=== PATIENT | female | born 1960 | race Caucasian/White ===

== ENCOUNTER 2017-11-23 18:03 | Emergency (ER) | payer OTHER, SELFPAY ==
[2017-11-23 18:05] VITALS: BP 150/95; PULSE 99; RESP 18; TEMP 37; O2SAT 98; BMI 40.8
--- NOTE | 2017-11-23 18:15 | ED.VISSUMM ---
- ER Visit Summary Date of Service: 11/23/17 Chief Complaint: Right knee pain History of Present Illness: The patient is a 57 F presents to the emergency department with right knee pain. Patient states her symptoms began as a dull ache in the knee about a month ago. She states that she has had meniscus surgery in the left knee and it felt different. Over the past 2 weeks, the pain is worsened. Most of the pain is in the back of her knee. She states that she has a difficult time getting comfortable. It is made worse when she bears weight. She denies any trauma. She denies any fevers or chills. She has no history of pulmonary embolus or DVT. She does have a Billy cyst and states that this feels similar. Physical Examination: Vital signs reviewed General: Well-nourished, well-developed Head: Normocephalic, atraumatic Eyes: Pupils equal and reactive, extraocular muscles intact Neck, supple, no lymphadenopathy Heart: Regular rate and rhythm Respiratory: No distress, clear bilaterally Abdomen: Soft, nontender, nondistended, no peritoneal signs Back: Nontender Extremities: Mild tenderness in the posterior right knee, no palpable mass, normal pulses, calves soft Skin: Normal color no rash Neuro: Alert and oriented, no focal or lateralizing deficits Test Results: [] Emergency Department Course and Treatment: The patient did have tenderness to palpation in the posterior thigh into the posterior knee. There is no palpable mass. There is no cords. Her pulses were normal. I did obtain plain films of the knee which are unremarkable. Patient underwent ultrasound which showed nonocclusive DVT within the thigh. I do feel that the patient is amenable to outpatient therapy. She will be started on Eliquis. She is given her first dose here. She was counseled on concerning symptoms and reasons to return. The patient will be discharged home. Treatment Plan: [] Disposition: Discharge Impression: 1. Right lower extremity DVT This note was generated with [employer] dictation software. It may contain incorrect words, spelling, and punctuation that were not noted in review of the chart prior to signing ED Disposition - Plan for ED Patient: Chief Complaint: Lower Extremity Injury Instructions: ED DVT Prescriptions: Apixaban [Eliquis] 10 mg PO BID #70 tab Referrals: Rickey Rolon DO [NON CLINICAL AFFILIATE] -
--- NOTE | 2017-11-23 18:18 | ED.DCSUM_ITS ---
- ER Visit Summary Date of Service: 11/23/17 Chief Complaint: Right knee pain History of Present Illness: The patient is a 57 F presents to the emergency department with right knee pain. Patient states her symptoms began as a dull ache in the knee about a month ago. She states that she has had meniscus reese rgery in the left knee and it felt different. Over the past 2 weeks, the pain is worsened. Most of the pain is in the back of her knee. She states that she has a difficult time getting comfortable. It is made worse when she bears weight. She denies any trauma. She denies any fevers or chills. She has no history of pulmonary embolus or DVT. She does have a Billy cyst and states that this feels similar. Physical Examination: Vital signs reviewed General: Well-nourished, well-developed Head: Normocephalic, atraumatic Eyes: Pupils equal and reactive, extraocular muscles intact Neck, supple, no lymphadenopathy Heart: Regular rate and rhythm Respiratory: No distress, clear bilaterally Abdomen: Soft, nontender, nondistended, no peritoneal signs Back: Nontender Extremities: Mild tenderness in the posterior right knee, no palpable mass, normal pulses, calves soft Skin: Normal color no rash Neuro: Alert and oriented, no focal or lateralizing deficits Test Results: [] Emergency Department Course and Treatment: The patient did have tenderness to palpation in the posterior thigh into the posterior knee. There is no palpable mass. There is no cords. Her pulses were normal. I did obtain plain films of the knee which are unremarkable. Patient underwent ultrasound which showed nonocclusive DVT within the thigh. I do feel that the patient is amenable to outpatient therapy. She will be started on Eliquis. She is given her first dose here. She was counseled on concerning symptoms and reasons to return. The patient will be discharged home. Treatment Plan: [] Disposition: Discharge Impression: 1. Right lower extremity DVT This note was generated with [employer] dictation software. It may contain incorrect words, spelling, and punctuation that were not noted in review of the chart prior to signing ED Disposition - Plan for ED Patient: Chief Complaint: Lower Extremity Injury Instructions: ED DVT Prescriptions: Apixaban [Eliquis] 10 mg PO BID #70 tab Referrals: Rickey Rolon DO [NON CLINICAL AFFILIATE] -
--- NOTE | 2017-11-23 18:36 | RAD_ITS ---
STUDY: X-RAY - RIGHT KNEE REASON FOR EXAM: Female, 57 years old. Right knee pain. TECHNIQUE: 4 view(s) of the knee. COMPARISON: None. FINDINGS: There is no fracture or dislocation. There is mild lateral subluxation of the patella. There is no joint effusion. Soft tissues and bony structures are otherwise unremarkable. RAD/Knee 4 or More Views IMPRESSION: Mild lateral patellar subluxation, otherwise unremarkable study. Electronically Signed: Elida Borrego MD at 19:02 EDT Tel , Service support ,
--- NOTE | 2017-11-23 18:41 | US_ITS ---
STUDY: VENOUS DOPPLER ULTRASOUND - RIGHT LOWER EXTREMITY REASON FOR EXAM: Female, 57 years old. Right leg pain TECHNIQUE: Ultrasound evaluation of the deep vein system to include lantigua-scale imaging and compression was performed. Lantigua-scale imaging and Doppler sonographic evaluation, including duplex spectral analysis and qualitative color flow sonography, was performed. COMPARISON: None. FINDINGS: Common Femoral Vein: Normal compression, spontaneity and augmentation. Normal color Doppler. Common Femoral Vein/Greater Saphenous Junction: Normal compression, spontaneity and augmentation. Normal color Doppler. Deep Femoral Vein: Normal compression, spontaneity and augmentation. Normal color Doppler. Femoral Proximal: Normal compression, spontaneity and augmentation. Normal color Doppler. Femoral Middle: Intraluminal thrombus with diminished compressibility and flow. Femoral Distal: Intraluminal thrombus with diminished compressibility and flow. Popliteal Vein: Normal compression, spontaneity and augmentation. Normal color Doppler. Posterior Tibial Vein: Normal compression, spontaneity and augmentation. Normal color Doppler. Peroneal Vein: Normal compression, spontaneity and augmentation. Normal color Doppler. US/Venous Duplex Imag/Limited/Uni IMPRESSION: Mid and distal left femoral vein deep vein thrombosis, partially occlusive. Electronically Signed: Nehemias Hopkins MD at 21:01 EDT , Service support ,
[2017-11-23] MEDS: APIXABAN 5 MG TABLET 10 MG PO (21:03)
[2017-11-23 21:06] VITALS: BP 141/95; PULSE 95; RESP 18; O2SAT 95
--- NOTE | 2017-11-23 21:06 | ED.RN ---
REVIEWED D/C INSTRUCTIONS, FOLLOW UP CARE, PRESCRIPTION, AND S/S THAT WOULD WARRANT A RETURN TO THE ED WITH PT. PT VERBALIZED AN UNDERSTANDING AND DENIES FURTHER QUESTIONS FOR THIS RN. PT SKIN P/W/D, RESP EVEN AND UNLABORED, PT A&O X 3, NO DISTRESS NOTED. PT AMBULATED OUT OF ED, GAIT STEADY.
== END 2017-11-23 21:10 | disposition home or self-care (01) ==
LOC: ED 20:11
PROVIDERS: Emergency Provider Emergency Medicine
DX: I82.4Y1 Acute embolism and thrombosis of unspecified deep veins of right proximal lower extremity (principal)
CPT/HCPCS: 73564; 93971; 99283

== ENCOUNTER → 2018-04-09 12:30 | Outpatient (CLI) | payer OTHER, SELFPAY ==
--- NOTE | 2018-04-09 12:35 | RAD_ITS ---
STUDY: X-RAY - SOFT TISSUE NECK REASON FOR EXAM: Female, 57 years old. Sleep apnea. TECHNIQUE: AP and lateral view(s) of the neck were obtained. COMPARISON: None. FINDINGS: The airway measures 8.4 mm from the posterior aspect of the base of the tongue to the anterior prevertebral soft tissues at the C2 level. Normal epiglottis. Normal visualized subglottic tracheal air column. Normal prevertebral soft tissue structures. Normal visualized osseous structures. The soft tissue structures are unremarkable. RAD/Neck for Soft Tissue IMPRESSION: The airspace measures 8.4 mm as described. Electronically Signed: Alexandro Cruz, at 13:05 EST , Service support ,
== END ==
LOC: RAD 12:31
PROVIDERS: Family Provider Psychiatry & Neurology Vascular Neurology; PCP Psychiatry & Neurology Vascular Neurology; Referring Provider Otolaryngology Otolaryngology/Facial Plastic Surgery; Visit Provider Otolaryngology Otolaryngology/Facial Plastic Surgery
DX: G47.33 Obstructive sleep apnea (adult) (pediatric) (principal)
CPT/HCPCS: 70360

== ENCOUNTER → 2018-05-10 20:13 | Outpatient (CLI) | payer OTHER, SELFPAY | PROVIDERS: Family Provider Psychiatry & Neurology Vascular Neurology; PCP Psychiatry & Neurology Vascular Neurology; Visit Provider Otolaryngology Otolaryngology/Facial Plastic Surgery | DX: G47.33 Obstructive sleep apnea (adult) (pediatric) (principal) | CPT/HCPCS: 95811 ==

== ENCOUNTER 2018-10-05 13:25 | Observation (INO) | payer OTHER, SELFPAY ==
[2018-10-05] VITALS (11 sets, daily range): BP systolic 117–175; BP diastolic 57–116; PULSE 81–100; RESP 14–18; TEMP 36.1–36.6; O2SAT 93–100; BMI 41.6; BMI 39.8
--- NOTE | 2018-10-05 13:50 | CT_ITS ---
STUDY: CT BRAIN WITHOUT CONTRAST REASON FOR EXAM: Female, 58 years old. Right-sided numbness RADIATION DOSAGE (If Supplied By Facility): CTDIvol = ( 44.99 ) mGy, DLP = ( 779.24 ) mGycm TECHNIQUE: Transaxial CT imaging of the brain was performed without administration of intravenous contrast material. Individualized dose optimization techniques were used for this CT. COMPARISON: No relevant priors. FINDINGS: Normal soft tissue structures. Normal calvarium. There is mild cerebral atrophy with widening of the extra-axial spaces and ventricular dilatation. There are areas of decreased attenuation within the white matter tracts of the supratentorial brain, consistent with microvascular disease changes. Normal basal ganglia and thalami. Normal brainstem. There is mild cerebellar atrophy. There is no intracranial hemorrhage. There are no findings of an acute ischemic infarction. Normal visualized paranasal sinuses. CT/Brain/Head without Contrast IMPRESSION: Mild chronic involutional changes of the brain. No acute intracranial process. Electronically Signed: Michael Lo MD at 14:15 EDT Tel [phone], Service support ,
--- NOTE | 2018-10-05 13:50 | EKG12_ITS ---
Test Reason : NEURO S/X Blood Pressure : / mmHG Vent. Rate : 087 BPM Atrial Rate : 088 BPM P-R Int : 198 ms QRS Dur : 104 ms QT Int : 400 ms P-R-T Axes : 034 004 027 degrees QTc Int : 481 ms Normal sinus rhythm Inferior infarct , age undetermined Abnormal ECG Confirmed by SEBASTIÁN MATTHEWS, HUBERT ([id number]), technical writer and editor JODI SCHMIDT ([id number]) on 10/08/2018 11:44:39 AM Referred By: Kamla Pathak Confirmed By:HUBERT LOWERY MD
--- NOTE | 2018-10-05 13:51 | ED.DCSUM_ITS ---
History of Present Illness Chief Complaint: Neuro S/Sx Informant: Patient Onset: Weeks - 1 Context: Gradual Onset Timing: Continuous, Waxes and wanes Quality and Location: Right Arm Parasthesia, Right Leg Parasthesia, Right Arm Weakness, Right Leg Weakness, Slurred Speech, Expressive Aphasia Current Severity: Moderate Maximum Severity: Moderate Associated Symptoms: Headache - intermittent, on top of head. different than typical migraines.. Negative for: Nausea, Vomiting, Chest Pain Narrative: Patient has a history of migraines, but these headaches have been different. She has been having them off and on for several weeks. However for the past week, she has been having right-sided neurologic symptoms in her right upper extremity and right lower extremity, as well as her trunk. She has noticed no facial symptoms. She has been having intermittent dysarthria, she thinks her speech is not slurred right now, but she is also been having symptoms of expressive a aphasia, having trouble trying to say words that she is thinking. That is present right now. - Past Medical History (1) DVT (deep venous thrombosis) Status: Chronic (2) Arthritis Status: Chronic (3) Lower extremity edema Status: Chronic (4) Migraines Status: Chronic Past Medical History - Allergies and Home Meds Allergies/Adverse Reactions: Allergies Penicillins [PCN] Allergy (Verified 11/23/17 18:05) Rash Primary Care Physician: Jorge Titus [NON-STAFF] - Smoking Status: Never smoker Review of Systems General: Denies: Chills, Fever, Sweats Eyes: Denies: Visual changes - bilaterally, Diplopia ENT: Denies: Rhinorrhea, Sore throat Cardiovascular: Denies: Chest pain, Palpitations Respiratory: Denies: Dyspnea, Cough, Dyspnea on exertion Gastrointestinal: Denies: Abdominal pain, Nausea, Vomiting, Diarrhea, Melena, Hematochezia Genitourinary: Denies: Dysuria, Hematuria, Frequency Musculoskeletal: Denies: Neck pain, Back pain, Extremity Pain Skin: Denies: Rash, Wounds Neurological: Reports: Headache, Weakness, Numbness, - - speech diff Psych: Reports: Anxiety. Denies: Suicidal thoughts STROKE Vital Signs/Narrative: Vital Signs Temp Pulse Resp BP Pulse Ox 10/05/18 13:28 97.1 F L 100 18 161/94 H 100 Inital Vital Signs reviewed: Yes - NIHSS Initial 1a Level of Consciousness: 0 1b LOC Questions (Score 2 if aphasic/stupor): 0 1c LOC Commands (Only score 1st attempt): 0 2 Best Gaze (If aphasic, use reflexive mvmts.): 0 3 Visual: 0 4 Facial Palsy: 0 5 Motor Arm Right (UN = amputation/fusion): 1 5 Motor Arm Left: 0 6 Motor Leg Right: 0 6 Motor Leg Left: 0 7 Limb ataxia (Only + if out of proportion): 0 8 Sensory (Aphasia/stupor=0 or 1, coma=2): 1 9 Best Language: 1 10 Dysarthria (mute, coma=2, intubated=UN): 0 11 Extinction and Inattention (only scored if +): 0 Total Score: 3 General: Well nourished, Well developed Head: Normocephalic, Atraumatic Eyes: Perrl, EOMI ENT: Moist mucous membranes, No rhinorrhea Neck: Supple, Nontender, - - no carotid bruits Cardiovascular: Regular rate, Regular rhythm, No murmurs Respiratory: No distress, CTA bilaterally, Chest nontender Abdomen: Soft, Nontender, Nondistended, Normal bowel sounds Back: Nontender, Normal Inspection Extremities: Nontender, No edema. Negative for: Calf Tenderness Skin: Normal color, No rash, No Trauma Neurological: Alert, Oriented x3 Psychological: Tearful Diagnostic/Tx/Re-eval Impressions Brain CT 10/05/18 13:50 IMPRESSION: Mild chronic involutional changes of the brain. No acute intracranial process. Electronically Signed: Michael Lo MD at 14:15 EDT Tel [phone], Service support , 10/05/18 13:50 Brain/Head without Contrast [CT] Stat Laboratory Results 10/05/18 10/05/18 10/05/18 14:05 14:05 14:05 WBC 6.3 RBC 5.12 Hgb 15.2 H Hct 46.4 MCV 90.6 MCH 29.7 MCHC 32.8 RDW Std Deviation 45.4 H RDW Coeff of Clarice 13.7 Plt Count 205 MPV 9.4 Immature Gran % (Auto) 0.600 Neut % (Auto) 54.1 Lymph % (Auto) 33.9 [place] % (Auto) 8.6 Eos % (Auto) 2.2 Baso % (Auto) 0.6 Absolute Neuts (auto) 3.4 Absolute Lymphs (auto) 2.14 Nucleated RBC % 0 PT 14.7 INR 1.2 APTT 32.9 Sodium 140 Potassium 3.8 Chloride 105 Carbon Dioxide 29.0 Anion Gap 6 BUN 13 Creatinine 0.98 Estim Creat Clear Calc 62.35 Est GFR (MDRD) Af Amer 75 Est GFR (MDRD) Non-Af 62 BUN/Creatinine Ratio 13.3 Glucose 96 Calcium 9.4 Troponin I < 0.015 - Rhythm Strip Rhythm Strip: Sinus Rhythm Rate: 87 Ectopy: None - EKG Initial EKG Interpretation: Sinus Rhythm, No Acute Injury Pattern, - - inf q's Prior: No Prior - Medical Decision Making CT is negative, reassuringly. I gave her Reglan, with the possibility of this being a migraine with neurologic symptoms, especially with the intermittent nature of the symptoms, it did not help her. I discussed with Dr. Resendiz with neurology, he advises admission for further work-up and consulted on the patient in the emergency department. Discussed with hospitalist for PCU bed. ED Disposition - Plan for ED Patient: Disposition: Acute Care Hospital [facility] Diagnosis: Right hemiparesis, Cephalgia Referrals: Jorge Titus [NON-STAFF] -
[2018-10-05 14:23] LABS: Absolute Lymphocyte Count 2.14 X10^3/uL (0.83-4.51); Absolute Neutrophil Count 3.4 X10^3/uL (2.0-7.7); Basophil# 0.04 X10^3/uL; Basophil% 0.6 % (0-1); Eosinophil# 0.14 X10^3/uL; Eosinophils% 2.2 % (0-5); Hematocrit 46.4 % (37-47); Hemoglobin 15.2 g/dL (12.0-15.0); Lymphocyte # 2.14 X10^3/ul (4.0); Lymphocyte % 33.9 % (19-41); Mean Corp Hgb Conc 32.8 g/dL (32-36); Mean Corpuscular Hgb 29.7 pg (27.0-32.0); Mean Corpuscular Volume 90.6 fL (81-99); Mean Platelet Vol. 9.4 fl (6.2-12.0); Monocyte# 0.54 X10^3/uL; Monocyte% 8.6 % (0-10); NRBC Flagged by Analyzer 0 % (0-5); Neutrophil # 3.41 X10^3/uL (2.7-7.7); Neutrophil % 54.1 % (47-70); Platelet Count 205 K/mm3 (150-450); RBC Distribution Width CV 13.7 % (11.6-14.6); RBC Distribution Width SD 45.4 fl (35.1-43.9); Red Blood Count 5.12 M/mm3 (4.2-5.4); White Blood Count 6.3 K/mm3 (4.4-11.0)
[2018-10-05 14:30] LABS: International Normalized Ratio 1.2; Partial Thromboplast Time 32.9 Seconds (24.1-36.2); Prothrombin Time (Protime)PT. 14.7 SECONDS (11.7-14.9)
[2018-10-05 14:40] LABS: Anion Gap 6 (5-15); BUN 13 mg/dL (7-18); BUN/Creat Ratio 13.3 RATIO (10-20); Calcium,Total 9.4 mg/dL (8.5-10.1); Chloride 105 mmol/L (98-107); Creatinine, Serum 0.98 mg/dL (0.55-1.02); EST Glomerular Filtration Rate 62 mL/min (>60); Est Glom Filt Rate - Afr Amer 75 mL/min (>60); Estimated Creatinine Clearance 62.35 ml/min; Glucose 96 mg/dL (74-106); Potassium 3.8 mmol/L (3.5-5.1); Sodium Level 140 mmol/L (136-145)
[2018-10-05] MEDS: Metoclopramide 10 MG/2 ML Vial 5 MG IV (14:58)
--- NOTE | 2018-10-05 16:31 | CON.PCM_ITS ---
Problem List (1) Tingling of right arm and right side of face Status: Acute (2) Speech disturbance Status: Acute (3) Migraines Status: Chronic Reason for Consult Date of Consultation: 10/05/18 Reason for Consultation: Headache, speech disturbances and right-sided tingling numbness History of Present Illness: The patient is a 58 year old F with PMH history of provoked DVT on Eliquis, migraines admitted with headache, tingling numbness, and speech disturbances. Per patient she has been having right-sided tingling and numbness for the past 2 weeks, started having generalized mild to moderate headache on the vertex for past for 5 days, per patient this is different from her migraine headaches and denies any photophobia, phonophobia, nausea or visual disturbances with the headache, also complained of speech disturbances with the headache during which she had difficulty in getting the words out, and the speech disturbances would last for few minutes before improving and per patient she has been having these symptoms on and off. Per patient she has been on amitriptyline for migraine for the past 3 years, per patient with amitriptyline her migraines are well controlled, her usual migraine headache is generalized headache with visual aura with photophobia phonophobia nausea lasting hours. At present patient denies any focal motor weakness, visual disturbances, dizziness, denies any vision loss, jaw claudication or temporal tenderness. Per patient she was diagnosed with unprovoked DVT in November 2017 and since then has been on Eliquis and per patient her PCP wanted her to continue Eliquis as the DVT was unprovoked. CT head done on admission did not report anything acute. [] Past Medical History Past Medical History (Chronic Problems): Chronic Problems DVT (deep venous thrombosis) (Chronic) Arthritis (Chronic) Lower extremity edema (Chronic) Migraines (Chronic) Allergies Penicillins [PCN] Allergy (Verified 11/23/17 18:05) Rash Home Medications: Ambulatory Orders Medication Instructions Recorded Amitriptyline HCl 20 mg PO QHS 11/23/17 Meloxicam 15 mg PO DAILY 11/23/17 Apixaban [Eliquis] 5 mg PO BID 10/05/18 Clobetasol Propionate 1 applic TP BID 10/05/18 Ergocalciferol [Vitamin D] 50,000 unit PO SALAMANCA 10/05/18 Furosemide [Lasix] 20 mg PO DAILY 10/05/18 buPROPion XL [Wellbutrin Xl] 300 mg PO DAILY 10/05/18 Lives: - - With boyfriend Smoking Status: Never smoker Alcohol: None Drugs: None Review of Systems Constitutional: Reports: - - Complete ROS negative except as documented in HPI Patient Problems: Active and Suspected Problems Right hemiparesis (Acute) Cephalgia (Acute) Tingling of right arm and right side of face (Acute) Speech disturbance (Acute) - Physical Exam General: Alert HEENT: Normocephalic Neck: Supple Lungs: Normal air movement Cardiovascular: Normal S1, Normal S2 Abdomen: Bowel Sounds Present Extremities: No cyanosis Neurological: - - Conscious, alert, CN II through XII grossly intact, power 5 x 5 both upper and lower extremities, no cerebellar signs, subjective mild sensory loss to light touch right face and right upper and lower extremity, plantars bilateral flexor, no NR, fundus not visualized, gait deferred, reflexes +B/L B/S/T/K/A Psych/Mental Status: Normal Affect Vital Signs Temp Pulse Resp BP Pulse Ox 97.1 F L 92 18 157/96 H 98 10/05/18 13:28 10/05/18 14:54 10/05/18 14:54 10/05/18 14:54 10/05/18 14:54 Oxygen Delivery Method Room Air Weight: 124.2 kg Body Mass Index (BMI) 41.6 Laboratory Tests Past 24 Hrs 10/05/18 10/05/18 10/05/18 14:05 14:05 14:05 WBC 6.3 RBC 5.12 Hgb 15.2 H Hct 46.4 MCV 90.6 MCH 29.7 MCHC 32.8 RDW Std Deviation 45.4 H RDW Coeff of Clarice 13.7 Plt Count 205 MPV 9.4 Immature Gran % (Auto) 0.600 Neut % (Auto) 54.1 Lymph % (Auto) 33.9 [place] % (Auto) 8.6 Eos % (Auto) 2.2 Baso % (Auto) 0.6 Absolute Neuts (auto) 3.4 Absolute Lymphs (auto) 2.14 Nucleated RBC % 0 PT 14.7 INR 1.2 APTT 32.9 Sodium 140 Potassium 3.8 Chloride 105 Carbon Dioxide 29.0 Anion Gap 6 BUN 13 Creatinine 0.98 Estim Creat Clear Calc 62.35 Est GFR (MDRD) Af Amer 75 Est GFR (MDRD) Non-Af 62 BUN/Creatinine Ratio 13.3 Glucose 96 Calcium 9.4 Troponin I < 0.015 Assessment/Plan All Active Problems Right hemiparesis (Acute) Cephalgia (Acute) Tingling of right arm and right side of face (Acute) Speech disturbance (Acute) The patient is a 58 year old F with PMH history of provoked DVT on Eliquis, migraines admitted with headache, tingling numbness, and speech disturbances. Per patient she has been having right-sided tingling and numbness for the past 2 weeks, started having generalized mild to moderate headache on the vertex for past for 5 days, per patient this is different from her migraine headaches and denies any photophobia, phonophobia, nausea or visual disturbances with the headache, also complained of speech disturbances with the headache during which she had difficulty in getting the words out, and the speech disturbances would last for few minutes before improving and per patient she has been having these symptoms on and off. Per patient she has been on amitriptyline for migraine for the past 3 years, per patient with amitriptyline her migraines are well controlled, her usual migraine headache is generalized headache with visual aura with photophobia phonophobia nausea lasting hours. At present patient denies any focal motor weakness, visual disturbances, dizziness, denies any vision loss, jaw claudication or temporal tenderness. Per patient she was diagnosed with unprovoked DVT in November 2017 and since then has been on Eliquis and per patient her PCP wanted her to continue Eliquis as the DVT was unprovoked. CT head done on admission did not report anything acute. Impression Headache with right-sided tingling numbness with speech disturbances Unlikely to be TIA as the symptoms have been present for past few days Rule out stroke versus possible complicated migraine Plan ?Check MRI brain without contrast ?Check CTA head/neck ?Check UA, ESR, hepatic panel ?Check TTE, LDL, HbA1c ?On Eliquis ?On amitriptyline for migraine prophylaxis. Increase to amitriptyline 25 mg p.o. nightly. Side effects discussed in detail. Patient denies any suicidal ideation. ?Trial of Depakote 500 mg IV every 8 hourly for 24 to 48 hours and then stop ?Trial of Decadron 4 mg IV every 6 hourly for 24 to 48 hours and then stop ?Magnesium sulfate 1 g IV once ?PT/OT/ST ?GI/DVT prophylaxis ?Fall precautions ?Further medical management per hospitalist team in ED ?Follow-up with neurology as outpatient in 4 weeks ?Call with questions if any ?Thank you for allowing us to participate in patient's care and management This note has been generated using [employer] dictation software. It may contain incorrect words, spellings and punctuation's that were not noted in the review of the note prior to signing. Code Visit Inpatient E&M: 36752 Init Hosp L3
--- NOTE | 2018-10-05 16:43 | MRI_ITS ---
HISTORY: Headache, right-sided numbness, speech problems intermittently. COMPARISON: None. TECHNIQUE: Multisequence multiplanar MR imaging of the brain per department protocol without intravenous gadolinium. # of images including paperwork: [id number] FINDINGS: BRAIN: Diffusion-weighted imaging shows no acute infarct. No remote parenchymal infarct. Best demonstrated on the FLAIR axial, series 6, image 15 and 16, within the left parietal convexity is a small probable dural based hyperintense lesion measuring 1.2 x 0.3 cm in greatest long and short axis dimensions. Corresponding T2 weighted imaging demonstrates mild hyperintense signal and T1-weighted imaging demonstrating isointense signal. No parenchymal hemorrhage, intra-axial mass, mass effect, or midline shift. No abnormal extra-axial fluid collections. No significant deep or periventricular white matter signal abnormalities to suggest sequela of chronic small vessel ischemic disease. VENTRICLES: Ventricles are normal in size and configuration. No hydrocephalus. PARANASAL SINUSES: Visualized paranasal sinuses are clear. MASTOIDS: Mastoid air cells are clear. ORBITS: Orbits are unremarkable. MRI/Brain without Contrast IMPRESSION: 1. No acute infarct or acute intracranial disease. 2. Left parietal convexity small probable dural based appearing lesion measuring 1.2 x 0.3 cm. Further characterization is limited. Small meningioma may have such an appearance. Follow-up with postcontrast enhanced imaging of the brain is recommended. at 2029 Reported and signed by: Len Strauss MD Electronically Signed: Len Strauss MD at 20:28 EDT Tel , Service support ,
--- NOTE | 2018-10-05 16:43 | CT_ITS ---
HISTORY: Right sided numbness COMPARISON: MR brain and CT brain performed same day. TECHNIQUE: Helical CT axial images are obtained from the thoracic inlet through the vertex with 100 ml of Isovue 370 intravenous contrast. Multiplanar reconstruction. 3D image processing was also performed. NASCET criteria using the distal ICAs for comparison were used for evaluation of carotid stenosis. A radiation dose optimization technique was used for this scan. # of images incl. paperwork: [id number] FINDINGS: BRAIN: Distal aspect of bilateral internal carotid arteries are normal in caliber and morphology without focal stenosis or aneurysm. Aplasia of the right A1 segment. Right A2 segment and distal branches are similar in caliber to contralateral side via filling through patent anterior communicating artery. Left anterior cerebral artery and bilateral middle cerebral arteries are within normal limits. Basilar artery is normal in caliber and morphology without high-grade stenosis or basilar tip aneurysm. origin of right CRACKER OFF with aplasia of the right P1 segment, normal variant. Left CRACKER OFF emanates from the basilar tip. Beyond their P1 segments, bilateral skip tracer have a normal appearance. Patent left PCOM. Vertebrobasilar junction is intact. No aneurysm, branch occlusion, high-grade stenosis, or arteriovenous malformation. NECK: CAROTID: Bilateral common carotid arteries, carotid bifurcations, and cervical course of bilateral internal carotid arteries are within normal limits without focal stenosis, aneurysm, or dissection. Origin and proximal visualized branches of bilateral external carotid arteries appear normal. VERTEBRAL: Bilateral vertebral arteries have a normal appearance with co-dominance. OTHER: Origin of the great vessels are within normal limits. CT/CTA Head AND Neck W/ Contrast IMPRESSION: 1. Negative CTA of the brain and neck. 2. Aplasia right A1 segment, normal variant. 3. origin right CRACKER OFF with aplasia right P1 segment, normal variant. Individualized dose optimization techniques were used for this CT. at 2018 Reported and signed by: Len Strauss MD Electronically Signed: Len Strauss MD at 20:17 EDT Tel , Service support ,
--- NOTE | 2018-10-05 16:43 | HP.PCM_ITS ---
<Abhay Mosqueda - Last Filed: 10/05/18 16:43> Problem List (1) CVA (cerebral vascular accident) Status: Acute (2) Depression Status: Chronic (3) DVT (deep venous thrombosis) Status: Chronic (4) Migraines Status: Chronic History of Present Illness Date of Admission: 10/05/18 Chief Complaint: aphasia The patient is a 58 year old F with pmhx migraine, DVT on eliquis, depression, who presents to the ER with c/o difficulty speaking, headache, and right sided weakness. This began on Monday, and felt like the words she wanted to say were in her mouth but she could not get them to come out. This progressively worsened throughout the week until today her boss noticed her difficulty speaking and advised her to be seen by a medical professional. She went to see her PCP who sent her to the ER. She has no hx stroke. She also has had right sided weakness in her upper and lower extremity, with associated unsteady gait. She does report a headache, but says it is not like any migraine she has had in the past. She describes it as very mild only occasionally needing tylenol, and has no associated photophobia, nausea, or vomiting. [] Past Medical History Past Medical History (Chronic Problems): Chronic Problems DVT (deep venous thrombosis) (Chronic) Arthritis (Chronic) Lower extremity edema (Chronic) Migraines (Chronic) Depression (Chronic) Allergies Penicillins [PCN] Allergy (Verified 11/23/17 18:05) Rash Home Medications: Ambulatory Orders Medication Instructions Recorded Amitriptyline HCl 20 mg PO QHS 11/23/17 Meloxicam 15 mg PO DAILY 11/23/17 Apixaban [Eliquis] 5 mg PO BID 10/05/18 Clobetasol Propionate 1 applic TP BID 10/05/18 Ergocalciferol [Vitamin D] 50,000 unit PO SALAMANCA 10/05/18 Furosemide [Lasix] 20 mg PO DAILY 10/05/18 buPROPion XL [Wellbutrin Xl] 300 mg PO DAILY 10/05/18 Surgical History: cholecystectomy, hysterectomy, - - knee Psychiatric History: Depression CLIENT SERVICES ACCOUNT MANAGER History: No pertinent CLIENT SERVICES ACCOUNT MANAGER history Lives: - - With boyfriend Smoking Status: Never smoker Tobacco Use: Non-smoker Alcohol: None Drugs: None - *Family History Maternal History Items: Heart Disease Paternal History Items: Unknown Review of Systems Constitutional: Denies: Chills, Fever, Weight Change HEENT: Denies: Head Aches, Sinus Congestion, Sinus Drainage Cardiovascular: Denies: Chest Pain, Palpitations Respiratory: Denies: Cough, Shortness of breath at rest, Sputum production Gastrointestinal: Denies: Abdominal Pain, Nausea, Vomiting Genitourinary: Denies: Dysuria Musculoskeletal: Denies: Joint Pain, Joint Tenderness Skin: Denies: Rash, Wounds Neurological: Reports: Change in Speech, Focal weakness, Headaches, - - ataxic gait. Denies: Confusion, Numbness, Tingling Psychiatric: Denies: Anxiety, Depression, Homicidal Ideations, Suicidal Ideations Hematologic/ Lymphatic: Denies: Easy Bruising, Easy Bleeding VTE Information - Inpt Only VTE Present on Admission: No VTE Mechan Device Prophylaxis: None VTE Pharm Prophylaxis ordered?: Yes Patient Problems: Active and Suspected Problems Right hemiparesis (Acute) Cephalgia (Acute) Tingling of right arm and right side of face (Acute) Speech disturbance (Acute) CVA (cerebral vascular accident) (Acute) - Physical Exam General: Alert, Oriented x3, Cooperative HEENT: Atraumatic, PERRLA, EOMI, Normocephalic Neck: Supple, No JVD, Negative Carotid Bruits Lungs: Clear to auscultation, Normal air movement Cardiovascular: Regular rate, No murmurs Abdomen: Bowel Sounds Present, Soft, Non Tender Extremities: No edema, Capillary Refill Less than 3 Seconds Skin: No rashes, No breakdown Musculoskeletal: No Tenderness to Palpation of Joints or Extremities Neurological: Cranial nerves II-XII grossly intact, - - upper extremity weakness and decreased mainframe systems engineer strength. Psych/Mental Status: Normal Affect, Appropriate, Alert and oriented to time, p lace, person, mood and affect Vital Signs Temp Pulse Resp BP Pulse Ox 97.1 F L 92 18 157/96 H 98 10/05/18 13:28 10/05/18 14:54 10/05/18 14:54 10/05/18 14:54 10/05/18 14:54 Oxygen Delivery Method Room Air Weight: 273 lb 13.026 oz Body Mass Index (BMI) 41.6 Laboratory Tests Past 24 Hrs 10/05/18 10/05/18 10/05/18 14:05 14:05 14:05 WBC 6.3 RBC 5.12 Hgb 15.2 H Hct 46.4 MCV 90.6 MCH 29.7 MCHC 32.8 RDW Std Deviation 45.4 H RDW Coeff of Clarice 13.7 Plt Count 205 MPV 9.4 Immature Gran % (Auto) 0.600 Neut % (Auto) 54.1 Lymph % (Auto) 33.9 [place] % (Auto) 8.6 Eos % (Auto) 2.2 Baso % (Auto) 0.6 Absolute Neuts (auto) 3.4 Absolute Lymphs (auto) 2.14 Nucleated RBC % 0 PT 14.7 INR 1.2 APTT 32.9 Sodium 140 Potassium 3.8 Chloride 105 Carbon Dioxide 29.0 Anion Gap 6 BUN 13 Creatinine 0.98 Estim Creat Clear Calc 62.35 Est GFR (MDRD) Af Amer 75 Est GFR (MDRD) Non-Af 62 BUN/Creatinine Ratio 13.3 Glucose 96 Calcium 9.4 Troponin I < 0.015 Assessment/Plan All Active Problems Right hemiparesis (Acute) Cephalgia (Acute) Tingling of right arm and right side of face (Acute) Speech disturbance (Acute) CVA (cerebral vascular accident) (Acute) 1. Right sided weakness, aphasia - rule out CVA, vs acute complex migraine. Neuro consulted. Trial depakote, decadron, mag for possible migraine. Check MRI brain and CTA head and neck. obtain Echo if + stroke. If stroke, start statin. Continue eliquis. Check TSH, A1C. Trop negative. 2. Migraine - as above, also on elavil for ppx 3. Hx unprovoked dvt - on eliquis. 4. Depression - continue home meds. 5. Obesity - dietary eval DVT ppx: eliquis DC planning: PTOTST evals This patient was seen by Abhay Mosqueda PA-C under the supervision of Dr. Pathak. <Kamla Pathak - Last Filed: 10/05/18 23:01> History of Present Illness The patient is a 58 year old F [] Past Medical History Allergies Penicillins [PCN] Allergy (Verified 11/23/17 18:05) Rash - Physical Exam Vital Signs Temp Pulse Resp BP Pulse Ox 96.9 F L 83 16 117/57 L 93 10/05/18 20:45 10/05/18 20:45 08/23/19 20:45 10/05/18 20:45 10/05/18 20:45 Oxygen Delivery Method Room Air Weight: 122.4 kg Body Mass Index (BMI) 39.8 Intake and Output for Last 24 Hours 10/03/18 10/04/18 10/05/18 23:59 23:59 23:59 Intake Total 637.00 / 637.00 Balance 637.00 / 637.00 Laboratory Tests Past 24 Hrs 10/05/18 10/05/18 10/05/18 14:05 14:05 14:05 WBC 6.3 RBC 5.12 Hgb 15.2 H Hct 46.4 MCV 90.6 MCH 29.7 MCHC 32.8 RDW Std Deviation 45.4 H RDW Coeff of Clarice 13.7 Plt Count 205 MPV 9.4 Immature Gran % (Auto) 0.600 Neut % (Auto) 54.1 Lymph % (Auto) 33.9 [place] % (Auto) 8.6 Eos % (Auto) 2.2 Baso % (Auto) 0.6 Absolute Neuts (auto) 3.4 Absolute Lymphs (auto) 2.14 Nucleated RBC % 0 ESR PT 14.7 INR 1.2 APTT 32.9 Sodium 140 Potassium 3.8 Chloride 105 Carbon Dioxide 29.0 Anion Gap 6 BUN 13 Creatinine 0.98 Estim Creat Clear Calc 62.35 Est GFR (MDRD) Af Amer 75 Est GFR (MDRD) Non-Af 62 BUN/Creatinine Ratio 13.3 Glucose 96 Hemoglobin A1c Calcium 9.4 Total Bilirubin Direct Bilirubin AST ALT Alkaline Phosphatase Troponin I < 0.015 Total Protein Albumin Globulin Triglycerides Cholesterol LDL Cholesterol VLDL Cholesterol HDL Cholesterol Urine Color Urine Clarity Urine pH Ur Specific [place] Urine Protein Urine Glucose (UA) Urine Ketones Urine Occult Blood Urine Nitrite Urine Bilirubin Urine Urobilinogen Ur Leukocyte Esterase Urine RBC Urine WBC Ur Squamous Epith Cells Urine Bacteria Urine Mucus 10/05/18 10/05/18 10/05/18 14:05 14:05 14:05 WBC RBC Hgb Hct MCV MCH MCHC RDW Std Deviation RDW Coeff of Clarice Plt Count MPV Immature Gran % (Auto) Neut % (Auto) Lymph % (Auto) [place] % (Auto) Eos % (Auto) Baso % (Auto) Absolute Neuts (auto) Absolute Lymphs (auto) Nucleated RBC % ESR 6 PT INR APTT Sodium Potassium Chloride Carbon Dioxide Anion Gap BUN Creatinine Estim Creat Clear Calc Est GFR (MDRD) Af Amer Est GFR (MDRD) Non-Af BUN/Creatinine Ratio Glucose Hemoglobin A1c 6.1 Calcium Total Bilirubin 0.40 Direct Bilirubin 0.14 AST 25 ALT 42 Alkaline Phosphatase 188 H Troponin I Total Protein 8.1 Albumin 4.0 Globulin 4.1 Triglycerides 136 Cholesterol 245 H LDL Cholesterol 165 H VLDL Cholesterol 27 HDL Cholesterol 53 Urine Color Urine Clarity Urine pH Ur Specific [place] Urine Protein Urine Glucose (UA) Urine Ketones Urine Occult Blood Urine Nitrite Urine Bilirubin Urine Urobilinogen Ur Leukocyte Esterase Urine RBC Urine WBC Ur Squamous Epith Cells Urine Bacteria Urine Mucus 10/05/18 17:35 WBC RBC Hgb Hct MCV MCH MCHC RDW Std Deviation RDW Coeff of Clarice Plt Count MPV Immature Gran % (Auto) Neut % (Auto) Lymph % (Auto) [place] % (Auto) Eos % (Auto) Baso % (Auto) Absolute Neuts (auto) Absolute Lymphs (auto) Nucleated RBC % ESR PT INR APTT Sodium Potassium Chloride Carbon Dioxide Anion Gap BUN Creatinine Estim Creat Clear Calc Est GFR (MDRD) Af Amer Est GFR (MDRD) Non-Af BUN/Creatinine Ratio Glucose Hemoglobin A1c Calcium Total Bilirubin Direct Bilirubin AST ALT Alkaline Phosphatase Troponin I Total Protein Albumin Globulin Triglycerides Cholesterol LDL Cholesterol VLDL Cholesterol HDL Cholesterol Urine Color Yellow Urine Clarity Clear Urine pH 7.0 Ur Specific [place] 1.010 Urine Protein Negative Urine Glucose (UA) Normal Urine Ketones Negative Urine Occult Blood Negative Urine Nitrite Negative Urine Bilirubin Negative Urine Urobilinogen Normal Ur Leukocyte Esterase Negative Urine RBC 0 SEEN Urine WBC 0-5 SEEN Ur Squamous Epith Cells 0 SEEN Urine Bacteria 0 SEEN Urine Mucus 0 SEEN POC Glucose 10/05/18 21:53 POC Glucose 187 H Assessment/Plan This patient was seen in conjunction with RADHA Fox. I have independently interviewed and examined the patient and reviewed pertinent historical, laboratory, and other data. Please refer to RADHA Fox note for his patient's presentation, findings, and recommendations. I have reviewed and his note and concur with his documentation CC: Right-sided weakness, dysarthria -recently over 1 week HPI: -year-old female male with past medical history of migraine, DVT on Eliquis, depression who presented to the emergency department with difficulty speaking headache and right-sided weakness ongoing intermittently over the past 1 week. Patient went to work and had a both noticed that the difficulty speaking. Recommended seen a doctor. She went to see her primary care doctor who referred her to the emergency department. Patient admits to having unsteady gait and a dull headache which is unlike her migraines. Denies any dizziness or palpitations or chest pain. Denied any photophobia nausea or vomiting. PMHX: As per HPI PSHx: This post cholecystectomy, hysterectomy, knee surgery FHX: Heart disease in mother, SHX: Denies any smoking, use of alcohol or illicit drugs. Physical Exam: Vitals: Patient 97.1F, heart rate 100, blood pressure 161/94, respiratory rate is 18, SPO2 100% on room air Gen: Appears anxious, not pale, not jaundiced CVS:HS I +II, regular, no murmurs RESP: Anu clear to auscultation GI: BS present and normal, soft, nontender, no palpable organs EXT:No edema FIELD INTERVIEWER: Power is 4/5 in both right upper and lower extremity, otherwise 5/5 in all extremities, motor tone, cranial nerves II through XII intact Labs: Admitting blood work is unremarkable ASSESSMENT: 1. TIA/CVA vs complex migraine 2. Acute headache, history of complex migraines 3. History of DVT 4. Morbid obesity 5. Depression Plan: Admit to PCU, stroke work-up Appreciate neurology consult -follow-up on recommendations Code Visit Inpatient E&M: 40682 Subs Hosp L2
[2018-10-05 17:25] LABS: AST(SGOT) 25 U/L (15-37); Alanine Aminotransfer ALT/SGPT 42 U/L (13-56); Alkaline Phosphatase 188 U/L (45-117); Bilirubin, Direct 0.14 mg/dL (0.00-0.30); Cholesterol 245 mg/dL (200); Globulin 4.1 g/dL (2.2-4.2); High Density Lipoprotein 53 mg/dL; Protein, Total 8.1 g/dL (6.4-8.2); Triglycerides 136 mg/dL; Very Low Density Lipoprotein 27 mg/dL (5-40)
[2018-10-05 17:39] LABS: Erythrocyte Sedimentation Rate 6 mm/hr (0-30)
[2018-10-05 17:44] LABS: Bacteria 0 SEEN /hpf (None Seen); Mucous, Urine 0 SEEN /hpf (<or=2+); Red Blood Cells-Urine 0 SEEN /hpf (0-5); Squamous Epithelial Cells - UA 0 SEEN /hpf (5-10)
[2018-10-05] MEDS: dexAMETHasone 4 MG/ML Vial IV ×2 (17:48→23:46)
[2018-10-05 17:57] LABS: Color, Urine Yellow (Yellow); Glucose, Dipstick Normal (Normal); Ketone-Dipstick Negative (Negative); Leukocyte Esterase-Dipstick Negative /ul (Negative); Nitrite-Dipstick Negative (Negative); Occult Blood-Urine Negative /ul (Negative); Protein-Dipstick Negative (Negative); Urine Bilirubin Dipstick Negative (Negative); Urine Clarity Clear (Clear); Urine Urobilinogen Normal (Normal)
[2018-10-05 17:58] LABS: Hemoglobin A1c 6.1 % (4.2-6.3)
[2018-10-05 18:20] LABS: White Blood Cells 0-5 SEEN /hpf (0-5)
[2018-10-05] MEDS: Magnesium Sulfate 1 GM in 0.9% Normal Saline 100 ML IV (20:22)
[2018-10-05] MEDS: APIXABAN 5 MG TABLET PO (21:50)
[2018-10-05] MEDS: Amitriptyline 10 MG Tablet 20 MG PO (21:50)
[2018-10-05 22:01] LABS: Bedside Glucose 187 mg/dL (70-110)
[2018-10-06] VITALS (7 sets, daily range): BP systolic 105–129; BP diastolic 45–83; PULSE 69–109; RESP 16–18; TEMP 36.6–36.7; O2SAT 92–99; BMI 39.8
[2018-10-06] MEDS: dexAMETHasone 4 MG/ML Vial IV (06:03)
[2018-10-06 06:41] LABS: Bedside Glucose 148 mg/dL (70-110)
[2018-10-06] MEDS: buPROPion (XL) 150 MG TABLET.XL 300 MG PO (08:58)
[2018-10-06] MEDS: APIXABAN 5 MG TABLET PO (08:58)
[2018-10-06] MEDS: Furosemide 20 MG Tablet PO (09:47)
[2018-10-06] MEDS: Acetaminophen 500 MG Tablet 1000 MG PO (10:12)
--- NOTE | 2018-10-06 10:47 | PN_ITS ---
Patient Problems: Active and Suspected Problems Right hemiparesis (Acute) Cephalgia (Acute) Tingling of right arm and right side of face (Acute) Speech disturbance (Acute) Subjective: Ms Samayoa is a 58 yo female who presented to the ED yesterday afternoon with MENDEZ/Speech difficulties and R sided tinglinig and numbness. Her sx had been persistent since last Monday and worsened. She has a h/o migraines but states that this MENDEZ was different. She still has some mild residual MENDEZ but all of her other sx have resolved. She has ambulated independently to the without issues. Vitals/I&O's: Vital Signs Temp Pulse Resp BP Pulse Ox 98.1 F 80 18 123/83 H 94 10/06/18 07:34 10/06/18 07:34 10/06/18 07:34 10/06/18 07:34 10/06/18 07:34 Oxygen Delivery Method Room Air Weight: 122.4 kg Body Mass Index (BMI) 39.8 Intake and Output for Last 24 Hours 10/04/18 10/05/18 10/06/18 23:59 23:59 23:59 Intake Total 637.00 / 637.00 350 / 350 Balance 637.00 / 637.00 350 / 350 General: Alert, Oriented x3, Cooperative, No apparent distress, Well developed, Well nourished, - - sitting up in chair watching TV and talking on phone HEENT: Atraumatic, PERRLA, EOMI, Normocephalic Oral: Moist Mucosa, No Gingival or Mucosal Lesions/ Ulcerations, - - mallampati 3, no thrush Neck: Supple, No JVD, Negative Carotid Bruits, Negative Hepatojugular Reflux, No Nodes, No Nuchal Rigidity, Trachea Midline, Thyroid Normal Size and Texture Lungs: Clear to auscultation, Normal air movement, No rhonchi, No wheeze, No rales Cardiovascular: Regular rate, Regular Rhythm, Normal S1, Normal S2, No murmurs, No Ectopic Activity, No rub noted, No Gallop Abdomen: Bowel Sounds Present, Soft, Non Tender, Non-Distended, No Hepato- splenomegaly, Passing Flatus, No hernias noted, - - obese Extremities: No clubbing, No cyanosis, No edema, Capillary Refill Less than 3 Seconds, No Calf Tenderness Skin: No rashes, No breakdown Musculoskeletal: No Tenderness to Palpation of Joints or Extremities, No Muscle Wasting Lymphatic: - - no cervical or supraclavicular LAD Neurological: Cranial nerves II-XII grossly intact, Neuro grossly intact, Motor Exam 5/5 strength throughout, Muscle tone normal, Sensory exam intact to light touch and pain, Coordination normal Psych/Mental Status: Normal Affect, Appropriate, Flat Affect Laboratory Results 10/05/18 14:05: WBC 6.3, RBC 5.12, Hgb 15.2 H, Hct 46.4, MCV 90.6, MCH 29.7, MCHC 32.8, RDW Std Deviation 45.4 H, RDW Coeff of Clarice 13.7, Plt Count 205, MPV 9.4, Immature Gran % (Auto) 0.600, Neut % (Auto) 54.1, Lymph % (Auto) 33.9, [place] % (Auto) 8.6, Eos % (Auto) 2.2, Baso % (Auto) 0.6, Absolute Neuts (auto) 3.4, Absolute Lymphs (auto) 2.14, Nucleated RBC % 0 10/05/18 14:05: PT 14.7, INR 1.2, APTT 32.9 10/05/18 14:05: Sodium 140, Potassium 3.8, Chloride 105, Carbon Dioxide 29.0, Anion Gap 6, BUN 13, Creatinine 0.98, Estim Creat Clear Calc 62.35, Est GFR (MDRD) Af Amer 75, Est GFR (MDRD) Non-Af 62, BUN/Creatinine Ratio 13.3, Glucose 96, Calcium 9.4, Troponin I < 0.015 10/05/18 14:05: ESR 6 10/05/18 14:05: Total Bilirubin 0.40, Direct Bilirubin 0.14, AST 25, ALT 42, Alkaline Phosphatase 188 H, Total Protein 8.1, Albumin 4.0, Globulin 4.1, Triglycerides 136, Cholesterol 245 H, LDL Cholesterol 165 H, VLDL Cholesterol 27, HDL Cholesterol 53 10/05/18 14:05: Hemoglobin A1c 6.1 10/05/18 17:35: Urine Color Yellow, Urine Clarity Clear, Urine pH 7.0, Ur Specific [place] 1.010, Urine Protein Negative, Urine Glucose (UA) Normal, Urine Ketones Negative, Urine Occult Blood Negative, Urine Nitrite Negative, Urine Bilirubin Negative, Urine Urobilinogen Normal, Ur Leukocyte Esterase Negative, Urine RBC 0 SEEN, Urine WBC 0-5 SEEN, Ur Squamous Epith Cells 0 SEEN, Urine Bacteria 0 SEEN, Urine Mucus 0 SEEN 10/05/18 21:53: POC Glucose 187 H 10/06/18 06:31: POC Glucose 148 H Current Medications Acetaminophen (Tylenol) 1,000 mg PO Q8H PRN PRN Reason: PAIN Last Admin: 10/06/18 10:12 Dose: 1,000 mg Documented by: Amitriptyline HCl (Elavil) 20 mg PO QHS [facility] Last Admin: 10/05/18 21:50 Dose: 20 mg Documented by: Apixaban (Eliquis) 5 mg PO BID [facility] Last Admin: 10/06/18 08:58 Dose: 5 mg Documented by: Bupropion HCl (Wellbutrin Xl) 300 mg PO DAILY [facility] Last Admin: 10/06/18 08:58 Dose: 300 mg Documented by: Dexamethasone Sodium Phosphate (Decadron) 4 mg IV Q6 [facility] Stop: 10/06/18 18:00 Last Admin: 10/06/18 06:03 Dose: 4 mg Documented by: Dextrose (D50w Syringe) 0 gm IV X1 PRN; Protocol PRN Reason: Hypoglycemia Ergocalciferol (Vitamin D) 50,000 unit PO SALAMANCA [facility] Furosemide (Lasix) 20 mg PO DAILY [facility] Last Admin: 10/06/18 09:47 Dose: 20 mg Documented by: Glucagon () 1 mg IM .X1 PRN PRN Reason: Hypoglycemia Valproic Acid 500 mg/ Dextrose 55 mls @ 50 mls/hr IV Q8 [facility] Stop: 10/06/18 17:00 Last Infusion: 10/06/18 07:32 Dose: Infused Documented by: Sodium Chloride () 250 mls @ 15 mls/hr IV .[id number] PRN PRN Reason: SALINE FLUSH Sodium Chloride () 10 - 40 ml IV UD PRN PRN Reason: SALINE FLUSH Medical Necessity - Tobacco Use Smoking Status: Never smoker Tobacco Use: Non-smoker Assessment/Plan All Active Problems Right hemiparesis (Acute) Cephalgia (Acute) Tingling of right arm and right side of face (Acute) Speech disturbance (Acute) CVA (cerebral vascular accident) (Acute) R Sided Numbness/Speech difficulties -MRI neg for stroke/CTA without any acute changes -ESR WNL -all sx have resolved and pt feels that she is close to baseline -? complex migraine with increased stress and h/o migraine -no need for ECHO as scans were negative MENDEZ -mild residual MENDEZ but better and a bit different than upon presentation -APAP PRN -did get depakote/steroids ang Mag as rx per neurology -will increase home amitriptyline to 25 mg daily -f/u with neuro in 4 weeks HPL -admits to having elevated levels in the past but was trying diet and exercise--> states that this has not been very successful -will to start Statin -start Pravachol 20 mg at hs upon d/c and will need repeat LFT and lipid profile in 6 weeks -SE d/w pt -total Chol is 245 and LDL 165/HDL 53 Meningioma -pt is aware of this and states that it has been very small on previous scans as well -f/u neuro--> doubt any further imaging needed if has remained stable H/O Migraines -increase home hs amitriptyline dose to 25 mg at hs per neuro recs Insulin Resistance -A1c 6.1 -will need f/u periodically to assure has not developed DM -no current medications required -recommend wgt loss Obesity -BMI 39.8 -recommend wgt loss Plan -D/C home today -F/U with Neuro in 4 weeks -F/U with PCP in 6 weeks
--- NOTE | 2018-10-06 11:34 | DCINST_ITS ---
- Discharge Diagnoses Current Active Problems: Current Active and Chronic Problems Cephalgia (Acute) Tingling of right arm and right side of face (Acute) Speech disturbance (Acute) Depression (Chronic) You will use the following diet at home:: Cardiac Your food should be the consistency of: Regular Your liquids should be the consistency of: Regular/Thin Discharge Activity: Return to Normal Activity, No Restrictions, May Drive, May Shower, May Take a Tub Bath Return to work on:: 10/08/18 May resume sexual activity in: No Restrictions Weight Bearing Status: Weight bearing as tolerated Call your doctor if you observe: Fever of 101 or Higher, Inability to urinate, Inability to have a bowel movement, Chest pain, - - recurrent neurological sx Allergies/Adverse Reactions: Allergies Penicillins [PCN] Allergy (Verified 11/23/17 18:05) Rash Medications to take at Discharge Meloxicam 15 mg PO DAILY 11/23/17 Apixaban [Eliquis] 5 mg PO BID 10/05/18 Clobetasol Propionate 1 applic TP BID 10/05/18 Ergocalciferol [Vitamin D] 50,000 unit PO SALAMANCA 10/05/18 Furosemide [Lasix] 20 mg PO DAILY 10/05/18 buPROPion XL [Wellbutrin Xl] 300 mg PO DAILY 10/05/18 Amitriptyline HCl [Elavil] 25 mg PO QHS #30 tab 10/06/18 Pravastatin [Pravachol] 20 mg PO QHS #30 tab 10/06/18 The following prescriptions were given: Amitriptyline HCl [Elavil] 25 mg PO QHS #30 tab Transmission Status: Pending to [facility] Pravastatin [Pravachol] 20 mg PO QHS #30 tab Transmission Status: Pending to [facility] Primary Care Physician: Jorge Titus [NON-STAFF] - Within 2 Weeks Test Results: Test results from this visit will be discussed in further detail at your follow- up appointment, if applicable. Please Follow Up With: Sky Resendiz MD When: In 4 weeks Proposed Discharge Date: 10/06/18
--- NOTE | 2018-10-06 11:39 | DS.PCM_ITS ---
Discharge Date and Diagnosis - Problem List Patient Problems: Active and Suspected Problems Cephalgia (Acute) Tingling of right arm and right side of face (Acute) Speech disturbance (Acute) Date of Admission: 10/05/18 Date of Discharge: 10/06/18 - Primary Discharge Diagnosis Active and Suspected Problems Cephalgia (Acute) Tingling of right arm and right side of face (Acute) Speech disturbance (Acute) - Secondary Discharge Diagnosis Chronic Problems DVT (deep venous thrombosis) (Chronic) Arthritis (Chronic) Lower extremity edema (Chronic) Migraines (Chronic) Depression (Chronic) Hospital Course and Treatment Imaging Results: MRI: No acute infarct and acute intracrainial disease/L parietal dural based lesion 1.2x0.3cm (suspected meningioma) CTA: Negative CTA of the brain and neck/Aplasia right A1 segment, normal variant/ origin right [employer] with aplasia right P1 segment, normal variant. Neurology Operations: None Procedures: - - MRI/CTA head and neck Summary of Care Provided: The patient is a 58 year old F who presented to the ED yesterday afternoon with difficulty speaking, headache, and right sided sensory changes. Her MENDEZ began on Monday and she and her boss had noted some issues with word finding through the week. She has a h/o migraines but stated that this was different for her. She was evaluated by her PCP on 10/05 and was instructed to come to the ED for further w/u. She did report that she has been under a lot more stress at work this week. NIH was a 2. She was seen by neurology and an extensive w/u was ordered. ESR was 6. A1c was 6/1. Total Chol was 245 with an LDL of 165--> she was started on low dose (20 mg) of pravastatin at hs for this. She was treated with Depakote, decadron and mag. Her MENDEZ persists mildly but all other neurological sx have resolved at this time. She had an MRI and CTA of her head and neck and both were without any s/o stroke or acute issues. MRI did show a probable small meningioma and when this was discussed with the pt she was aware of its presence already. Per Neurology recommendations, her amitriptyline was increased from 20 to 25 mg at hs and f/u for 4 weeks was recommended. She was able to ambulate independently without issues and was tolerating a regular diet at the time of d/c. She was d/c to home in stable condition. [] Patient Problems: Active and Suspected Problems Cephalgia (Acute) Tingling of right arm and right side of face (Acute) Speech disturbance (Acute) - Physical Exam Vital Signs Temp Pulse Resp BP Pulse Ox 97.9 F 109 H 18 129/78 H 99 10/06/18 11:16 10/06/18 11:16 10/06/18 11:16 10/06/18 11:16 10/06/18 11:16 Oxygen Delivery Method Room Air Weight: 122.4 kg Body Mass Index (BMI) 39.8 Intake and Output for Last 24 Hours 10/04/18 10/05/18 10/06/18 23:59 23:59 23:59 Intake Total 637.00 / 637.00 350 / 350 Balance 637.00 / 637.00 350 / 350 Laboratory Tests Past 24 Hrs 10/05/18 10/05/18 10/05/18 14:05 14:05 14:05 WBC 6.3 RBC 5.12 Hgb 15.2 H Hct 46.4 MCV 90.6 MCH 29.7 MCHC 32.8 RDW Std Deviation 45.4 H RDW Coeff of Clarice 13.7 Plt Count 205 MPV 9.4 Immature Gran % (Auto) 0.600 Neut % (Auto) 54.1 Lymph % (Auto) 33.9 [place] % (Auto) 8.6 Eos % (Auto) 2.2 Baso % (Auto) 0.6 Absolute Neuts (auto) 3.4 Absolute Lymphs (auto) 2.14 Nucleated RBC % 0 ESR PT 14.7 INR 1.2 APTT 32.9 Sodium 140 Potassium 3.8 Chloride 105 Carbon Dioxide 29.0 Anion Gap 6 BUN 13 Creatinine 0.98 Estim Creat Clear Calc 62.35 Est GFR (MDRD) Af Amer 75 Est GFR (MDRD) Non-Af 62 BUN/Creatinine Ratio 13.3 Glucose 96 Hemoglobin A1c Calcium 9.4 Total Bilirubin Direct Bilirubin AST ALT Alkaline Phosphatase Troponin I < 0.015 Total Protein Albumin Globulin Triglycerides Cholesterol LDL Cholesterol VLDL Cholesterol HDL Cholesterol Urine Color Urine Clarity Urine pH Ur Specific [place] Urine Protein Urine Glucose (UA) Urine Ketones Urine Occult Blood Urine Nitrite Urine Bilirubin Urine Urobilinogen Ur Leukocyte Esterase Urine RBC Urine WBC Ur Squamous Epith Cells Urine Bacteria Urine Mucus 10/05/18 10/05/18 10/05/18 14:05 14:05 14:05 WBC RBC Hgb Hct MCV MCH MCHC RDW Std Deviation RDW Coeff of Clarice Plt Count MPV Immature Gran % (Auto) Neut % (Auto) Lymph % (Auto) [place] % (Auto) Eos % (Auto) Baso % (Auto) Absolute Neuts (auto) Absolute Lymphs (auto) Nucleated RBC % ESR 6 PT INR APTT Sodium Potassium Chloride Carbon Dioxide Anion Gap BUN Creatinine Estim Creat Clear Calc Est GFR (MDRD) Af Amer Est GFR (MDRD) Non-Af BUN/Creatinine Ratio Glucose Hemoglobin A1c 6.1 Calcium Total Bilirubin 0.40 Direct Bilirubin 0.14 AST 25 ALT 42 Alkaline Phosphatase 188 H Troponin I Total Protein 8.1 Albumin 4.0 Globulin 4.1 Triglycerides 136 Cholesterol 245 H LDL Cholesterol 165 H VLDL Cholesterol 27 HDL Cholesterol 53 Urine Color Urine Clarity Urine pH Ur Specific [place] Urine Protein Urine Glucose (UA) Urine Ketones Urine Occult Blood Urine Nitrite Urine Bilirubin Urine Urobilinogen Ur Leukocyte Esterase Urine RBC Urine WBC Ur Squamous Epith Cells Urine Bacteria Urine Mucus 10/05/18 17:35 WBC RBC Hgb Hct MCV MCH MCHC RDW Std Deviation RDW Coeff of Clarice Plt Count MPV Immature Gran % (Auto) Neut % (Auto) Lymph % (Auto) [place] % (Auto) Eos % (Auto) Baso % (Auto) Absolute Neuts (auto) Absolute Lymphs (auto) Nucleated RBC % ESR PT INR APTT Sodium Potassium Chloride Carbon Dioxide Anion Gap BUN Creatinine Estim Creat Clear Calc Est GFR (MDRD) Af Amer Est GFR (MDRD) Non-Af BUN/Creatinine Ratio Glucose Hemoglobin A1c Calcium Total Bilirubin Direct Bilirubin AST ALT Alkaline Phosphatase Troponin I Total Protein Albumin Globulin Triglycerides Cholesterol LDL Cholesterol VLDL Cholesterol HDL Cholesterol Urine Color Yellow Urine Clarity Clear Urine pH 7.0 Ur Specific [place] 1.010 Urine Protein Negative Urine Glucose (UA) Normal Urine Ketones Negative Urine Occult Blood Negative Urine Nitrite Negative Urine Bilirubin Negative Urine Urobilinogen Normal Ur Leukocyte Esterase Negative Urine RBC 0 SEEN Urine WBC 0-5 SEEN Ur Squamous Epith Cells 0 SEEN Urine Bacteria 0 SEEN Urine Mucus 0 SEEN POC Glucose 10/06/18 10/05/18 06:31 21:53 POC Glucose 148 H 187 H Discharge Activity: Return to Normal Activity, No Restrictions, May Drive, May Shower, May Take a Tub Bath Return to work on:: 10/08/18 May resume sexual activity in: No Restrictions Weight Bearing Status: Weight bearing as tolerated Call your doctor if you observe: Fever of 101 or Higher, Inability to urinate, Inability to have a bowel movement, Chest pain, - - recurrent neurological sx Home Medications: Medications to take at Discharge Meloxicam 15 mg PO DAILY 11/23/17 Apixaban [Eliquis] 5 mg PO BID 10/05/18 Clobetasol Propionate 1 applic TP BID 10/05/18 Ergocalciferol [Vitamin D] 50,000 unit PO SALAMANCA 10/05/18 Furosemide [Lasix] 20 mg PO DAILY 10/05/18 buPROPion XL [Wellbutrin Xl] 300 mg PO DAILY 10/05/18 Amitriptyline HCl [Elavil] 25 mg PO QHS #30 tab 10/06/18 Pravastatin [Pravachol] 20 mg PO QHS #30 tab 10/06/18 Following Prescrptions Were Given to Patient: Amitriptyline HCl [Elavil] 25 mg PO QHS #30 tab Transmission Status: Pending to [facility] Pravastatin [Pravachol] 20 mg PO QHS #30 tab Transmission Status: Pending to [facility] Primary Care Physician: Jorge Titus [NON-STAFF] - Within 2 Weeks Please Follow Up With: Sky Resendiz MD When: In 4 weeks Medical Necessity - Tobacco Use Smoking Status: Never smoker Tobacco Use: Non-smoker Meaningful Use Info Meaningful Use Diagnoses (Choose all that apply): None applicable Code Visit Inpatient E&M: 22236 Disch Hosp
== END 2018-10-06 13:23 | disposition home or self-care (01) ==
LOC: ED 15:10 → PCU 16:24
PROVIDERS: Psychiatry & Neurology Neurology; Admitting Provider Internal Medicine; Emergency Provider Emergency Medicine; Family Provider Internal Medicine; PCP Internal Medicine; Referring Provider Internal Medicine; Visit Provider Internal Medicine
DX: G43.109 Migraine with aura, not intractable, without status migrainosus (principal); R47.01 Aphasia; R20.0 Anesthesia of skin; M19.90 Unspecified osteoarthritis, unspecified site; F32.9 Major depressive disorder, single episode, unspecified; R60.0 Localized edema; F41.9 Anxiety disorder, unspecified; R29.700 NIHSS score 0; E66.01 Morbid (severe) obesity due to excess calories; D32.9 Benign neoplasm of meninges, unspecified; E78.5 Hyperlipidemia, unspecified; E88.81 Metabolic syndrome and other insulin resistance; Z86.718 Personal history of other venous thrombosis and embolism; Z79.899 Other long term (current) drug therapy; Z79.01 Long term (current) use of anticoagulants; Z68.39 Body mass index [BMI] 39.0-39.9, adult; Z71.3 Dietary counseling and surveillance
CPT/HCPCS: 70450; 70496; 70498; 70551; 80048; 80061; 80076; 81001; 82962; 83036; 84484; 85025; 85610; 85652; 85730; 87086; 87088; 92523; 92610; 93005; 96365; 96366; 96375; 96376; 97162; 97165; 99218; 99285; J7040; Q9967; A4216; G0378

== ENCOUNTER → 2019-12-20 10:15 | Outpatient (CLI) | payer OTHER, SELFPAY ==
[2018-10-06 08:43] VITALS: BMI 39.8
--- NOTE | 2019-12-20 10:20 | RAD_ITS ---
STUDY: X-RAY - PELVIS REASON FOR EXAM: Female, 59 years old. Psoriatic arthropathy TECHNIQUE: One view of the pelvis was obtained. COMPARISON: None. FINDINGS: There are degenerative changes in the symphysis pubis with sclerosis bilaterally. SI joints are normal. Bones of the pelvis are intact and hips are located. Soft tissues are unremarkable. RAD/Pelvis 1 or 2 Views IMPRESSION: Degenerative changes in the pubis symphysis. Normal SI joints. For more definitive evaluation please refer to sacral MR with and without contrast to evaluate for possible inflammatory sacroiliitis in the setting of psoriatic arthropathy. Plain films have poor accuracy and low sensitivity.. Electronically Signed: Kermit Donis, at 16:57 EST Tel , Service support ,
[2019-12-20 12:15] LABS: Absolute Lymphocyte Count 2.39 X10^3/uL (0.83-4.51); Absolute Neutrophil Count 2.5 X10^3/uL (2.0-7.7); Basophil# 0.03 X10^3/uL; Basophil% 0.5 % (0-1); Eosinophil# 0.12 X10^3/uL; Eosinophils% 2.1 % (0-5); Hematocrit 43.4 % (37-47); Hemoglobin 13.9 g/dL (12.0-15.0); Lymphocyte # 2.39 X10^3/ul (4.0); Lymphocyte % 42.4 % (19-41); Mean Corpuscular Hgb 29.8 pg (27.0-32.0); Mean Corpuscular Volume 93.1 fL (81-99); Mean Platelet Vol. 9.6 fl (6.2-12.0); Monocyte# 0.55 X10^3/uL; Monocyte% 9.8 % (0-10); NRBC Flagged by Analyzer 0 % (0-5); Neutrophil # 2.53 X10^3/uL (2.7-7.7); Neutrophil % 44.8 % (47-70); Platelet Count 217 K/mm3 (150-450); RBC Distribution Width CV 13.8 % (11.6-14.6); RBC Distribution Width SD 47.2 fl (35.1-43.9); Red Blood Count 4.66 M/mm3 (4.2-5.4); White Blood Count 5.6 K/mm3 (4.4-11.0)
[2019-12-20 12:39] LABS: AST(SGOT) 19 U/L (15-37); Alanine Aminotransfer ALT/SGPT 36 U/L (13-56); Albumin, Serum 3.7 g/dL (3.2-5.0); Alkaline Phosphatase 135 U/L (45-117); Anion Gap 4 (5-15); BUN 19 mg/dL (7-18); BUN/Creat Ratio 24.6 RATIO (10-20); CRP < 2.90 mg/L (0.0-3.0); Calcium,Total 8.9 mg/dL (8.5-10.1); Chloride 107 mmol/L (98-107); Creatinine, Serum 0.77 mg/dL (0.55-1.02); EST Glomerular Filtration Rate 81 mL/min (>60); Est Glom Filt Rate - Afr Amer 98 mL/min (>60); Globulin 3.6 g/dL (2.2-4.2); Glucose 84 mg/dL (74-106); Potassium 4.2 mmol/L (3.5-5.1); Protein, Total 7.3 g/dL (6.4-8.2); Rheumatoid Factor < 10.0 IU/mL (<15); Sodium Level 140 mmol/L (136-145)
[2019-12-20 12:58] LABS: Erythrocyte Sedimentation Rate 8 mm/hr (0-30)
[2019-12-20 13:08] LABS: Hepatitis B Surface Antibody Non-Reactive; Hepatitis B Surface Antigen Non-Reactive (Nonreactive); Hepatitis C Antibody Non-Reactive (Nonreactive)
[2019-12-23 07:25] LABS: CCP IgG Antibodies < 1 units (0-19); Hepatitis B Core AB IgM Negative (Negative)
[2019-12-24 09:07] LABS: ANTINUCLEAR ANTIBODIES DIRECT Negative (Negative)
== END ==
PROVIDERS: PCP Internal Medicine; Referring Provider Internal Medicine Rheumatology; Visit Provider Internal Medicine Rheumatology
DX: L40.59 Other psoriatic arthropathy (principal); L40.8 Other psoriasis; M79.7 Fibromyalgia; G43.909 Migraine, unspecified, not intractable, without status migrainosus; G47.33 Obstructive sleep apnea (adult) (pediatric); Z86.718 Personal history of other venous thrombosis and embolism; M79.89 Other specified soft tissue disorders; E78.5 Hyperlipidemia, unspecified
CPT/HCPCS: 36415; 72170; 80053; 85025; 85652; 86038; 86140; 86200; 86431; 86705; 86706; 86803; 87340

== ENCOUNTER → 2020-02-13 08:49 | Outpatient (CLI) | payer OTHER, SELFPAY ==
[2018-10-06 08:43] VITALS: BMI 39.8
[2020-02-13 10:13] LABS: Absolute Lymphocyte Count 2.02 X10^3/uL (0.83-4.51); Absolute Neutrophil Count 2.6 X10^3/uL (2.0-7.7); Basophil# 0.04 X10^3/uL; Basophil% 0.8 % (0-1); Eosinophil# 0.11 X10^3/uL; Eosinophils% 2.1 % (0-5); Hematocrit 41.5 % (37-47); Hemoglobin 13.5 g/dL (12.0-15.0); Lymphocyte # 2.02 X10^3/ul (4.0); Lymphocyte % 38.3 % (19-41); Mean Corp Hgb Conc 32.5 g/dL (32-36); Mean Corpuscular Hgb 30.5 pg (27.0-32.0); Mean Corpuscular Volume 93.7 fL (81-99); Mean Platelet Vol. 9.4 fl (6.2-12.0); Monocyte# 0.53 X10^3/uL; NRBC Flagged by Analyzer 0 % (0-5); Neutrophil # 2.56 X10^3/uL (2.7-7.7); Neutrophil % 48.4 % (47-70); Platelet Count 202 K/mm3 (150-450); RBC Distribution Width CV 14.6 % (11.6-14.6); RBC Distribution Width SD 49.3 fl (35.1-43.9); Red Blood Count 4.43 M/mm3 (4.2-5.4); White Blood Count 5.3 K/mm3 (4.4-11.0)
[2020-02-13 10:24] LABS: ALB/GLOB Ratio 1.1 RATIO (0.9-2.4); AST(SGOT) 14 U/L (15-37); Alanine Aminotransfer ALT/SGPT 34 U/L (13-56); Albumin, Serum 3.6 g/dL (3.2-5.0); Alkaline Phosphatase 138 U/L (45-117); Anion Gap 5 (5-15); BUN 20 mg/dL (7-18); BUN/Creat Ratio 20.4 RATIO (10-20); Chloride 108 mmol/L (98-107); Creatinine, Serum 0.98 mg/dL (0.55-1.02); EST Glomerular Filtration Rate 61 mL/min (>60); Est Glom Filt Rate - Afr Amer 74 mL/min (>60); Globulin 3.4 g/dL (2.2-4.2); Glucose 103 mg/dL (74-106); Potassium 4.1 mmol/L (3.5-5.1); Sodium Level 141 mmol/L (136-145)
== END ==
PROVIDERS: PCP Internal Medicine; Referring Provider Internal Medicine Rheumatology; Visit Provider Internal Medicine Rheumatology
DX: L40.59 Other psoriatic arthropathy (principal); Z79.899 Other long term (current) drug therapy; L40.8 Other psoriasis; M79.7 Fibromyalgia; M21.41 Flat foot [pes planus] (acquired), right foot; G43.909 Migraine, unspecified, not intractable, without status migrainosus; G47.33 Obstructive sleep apnea (adult) (pediatric); M79.89 Other specified soft tissue disorders; E78.5 Hyperlipidemia, unspecified; Z86.718 Personal history of other venous thrombosis and embolism
CPT/HCPCS: 36415; 80053; 85025

== ENCOUNTER → 2020-04-08 06:32 | Outpatient (CLI) | payer OTHER, SELFPAY ==
[2018-10-06 08:43] VITALS: BMI 39.8
[2020-04-08 09:25] LABS: Absolute Lymphocyte Count 2.24 X10^3/uL (0.83-4.51); Absolute Neutrophil Count 2.7 X10^3/uL (2.0-7.7); Basophil# 0.06 X10^3/uL; Basophil% 1.1 % (0-1); Eosinophil# 0.14 X10^3/uL; Eosinophils% 2.5 % (0-5); Hematocrit 43.2 % (37-47); Hemoglobin 13.9 g/dL (12.0-15.0); Lymphocyte # 2.24 X10^3/ul (4.0); Lymphocyte % 39.4 % (19-41); Mean Corp Hgb Conc 32.2 g/dL (32-36); Mean Corpuscular Hgb 30.5 pg (27.0-32.0); Mean Corpuscular Volume 94.7 fL (81-99); Mean Platelet Vol. 9.3 fl (6.2-12.0); Monocyte# 0.53 X10^3/uL; Monocyte% 9.3 % (0-10); NRBC Flagged by Analyzer 0 % (0-5); Neutrophil # 2.68 X10^3/uL (2.7-7.7); Neutrophil % 47.2 % (47-70); Platelet Count 225 K/mm3 (150-450); RBC Distribution Width CV 14.6 % (11.6-14.6); Red Blood Count 4.56 M/mm3 (4.2-5.4); White Blood Count 5.7 K/mm3 (4.4-11.0)
[2020-04-08 09:52] LABS: ALB/GLOB Ratio 1.1 RATIO (0.9-2.4); AST(SGOT) 27 U/L (15-37); Alanine Aminotransfer ALT/SGPT 38 U/L (13-56); Alkaline Phosphatase 139 U/L (45-117); Anion Gap 4 (5-15); BUN 11 mg/dL (7-18); BUN/Creat Ratio 12.1 RATIO (10-20); Calcium,Total 9.2 mg/dL (8.5-10.1); Chloride 107 mmol/L (98-107); Creatinine, Serum 0.91 mg/dL (0.55-1.02); EST Glomerular Filtration Rate 67 mL/min (>60); Est Glom Filt Rate - Afr Amer 81 mL/min (>60); Globulin 3.7 g/dL (2.2-4.2); Glucose 92 mg/dL (74-106); Potassium 4.1 mmol/L (3.5-5.1); Protein, Total 7.7 g/dL (6.4-8.2); Sodium Level 140 mmol/L (136-145)
--- NOTE | 2020-04-08 14:16 | NEURO ---
NCS and/or EMG Patient Report Ordering Doctor: Zora Lyon DATE OF SERVICE: 04/08/20 Genia Samayoa presents for electrodiagnostic testing of the upper limbs. She has complaints of numbness and weakness in both hands. Electrodiagnostic findings: Median motor nerve demonstrates normal distal latency, amplitude and conduction velocity bilaterally. Normal ulnar motor response bilaterally. Normal median and ulnar F waves. Prolonged median sensory latency noted at the wrist bilaterally. Normal ulnar and radial sensory responses. On needle EMG, all muscles tested in the upper limb showed no evidence of denervation with normal motor unit action potentials. Electrodiagnostic impression: This is an abnormal study of the upper limbs. 1. Electrodiagnostic findings demonstrate bilateral median mononeuropathy. This is consistent with a mild bilateral carpal tunnel syndrome. If any further questions, please do not hesitate to contact me
== END ==
PROVIDERS: PCP Internal Medicine; Referring Provider Internal Medicine Rheumatology; Visit Provider Internal Medicine Rheumatology
DX: L40.59 Other psoriatic arthropathy (principal); Z79.899 Other long term (current) drug therapy; L40.8 Other psoriasis; M79.7 Fibromyalgia; M21.41 Flat foot [pes planus] (acquired), right foot; G43.909 Migraine, unspecified, not intractable, without status migrainosus; G47.33 Obstructive sleep apnea (adult) (pediatric); Z86.718 Personal history of other venous thrombosis and embolism; M79.89 Other specified soft tissue disorders; E78.5 Hyperlipidemia, unspecified
CPT/HCPCS: 36415; 80053; 85025; 95886; 95912

== ENCOUNTER → 2020-06-17 15:31 | Outpatient (CLI) | payer OTHER, SELFPAY ==
[2018-10-06 08:43] VITALS: BMI 39.8
[2020-06-17 17:34] LABS: Absolute Lymphocyte Count 2.62 X10^3/uL (0.83-4.51); Absolute Neutrophil Count 3.6 X10^3/uL (2.0-7.7); Basophil# 0.05 X10^3/uL; Basophil% 0.7 % (0-1); Eosinophil# 0.15 X10^3/uL; Eosinophils% 2.1 % (0-5); Hematocrit 45.2 % (37-47); Hemoglobin 14.7 g/dL (12.0-15.0); Lymphocyte # 2.62 X10^3/ul (0.83-4.51); Lymphocyte % 37.5 % (19-41); Mean Corp Hgb Conc 32.5 g/dL (32-36); Mean Corpuscular Volume 95.4 fL (81-99); Mean Platelet Vol. 9.5 fl (6.2-12.0); Monocyte# 0.48 X10^3/uL; Monocyte% 6.9 % (0-10); NRBC Flagged by Analyzer 0 % (0-5); Neutrophil # 3.62 X10^3/uL (2.7-7.7); Neutrophil % 51.8 % (47-70); Platelet Count 255 K/mm3 (150-450); RBC Distribution Width CV 14.2 % (11.6-14.6); RBC Distribution Width SD 49.2 fl (35.1-43.9); Red Blood Count 4.74 M/mm3 (4.2-5.4)
[2020-06-17 18:19] LABS: ALB/GLOB Ratio 1.1 RATIO (0.9-2.4); AST(SGOT) 29 U/L (15-37); Alanine Aminotransfer ALT/SGPT 59 U/L (13-56); Albumin, Serum 4.1 g/dL (3.2-5.0); Alkaline Phosphatase 127 U/L (45-117); Anion Gap 4 (5-15); BUN 10 mg/dL (7-18); BUN/Creat Ratio 11.6 RATIO (10-20); Calcium,Total 9.3 mg/dL (8.5-10.1); Chloride 104 mmol/L (98-107); Creatinine, Serum 0.86 mg/dL (0.55-1.02); EST Glomerular Filtration Rate 71 mL/min (>60); Est Glom Filt Rate - Afr Amer 86 mL/min (>60); Globulin 3.6 g/dL (2.2-4.2); Glucose 93 mg/dL (74-106); Potassium 4.2 mmol/L (3.5-5.1); Protein, Total 7.7 g/dL (6.4-8.2); Sodium Level 137 mmol/L (136-145)
== END ==
PROVIDERS: PCP Internal Medicine; Referring Provider Internal Medicine Rheumatology; Visit Provider Internal Medicine Rheumatology
DX: L40.59 Other psoriatic arthropathy (principal); M79.7 Fibromyalgia; M21.41 Flat foot [pes planus] (acquired), right foot; M21.42 Flat foot [pes planus] (acquired), left foot; M79.89 Other specified soft tissue disorders; E78.5 Hyperlipidemia, unspecified; G43.909 Migraine, unspecified, not intractable, without status migrainosus; G47.33 Obstructive sleep apnea (adult) (pediatric); Z79.899 Other long term (current) drug therapy; Z86.718 Personal history of other venous thrombosis and embolism
CPT/HCPCS: 36415; 80053; 85025

== ENCOUNTER 2020-06-22 17:24 | Emergency (ER) | payer OTHER, SELFPAY ==
[2018-10-06 08:43] VITALS: BMI 39.8
[2020-06-22 17:25] VITALS: BP 142/104; PULSE 118; RESP 18; TEMP 37.6; O2SAT 94; BMI 40.8
--- NOTE | 2020-06-22 17:40 | EDS_ITS ---
HPI History of Present Illness Chief Complaint: Lower Extremity Injury Detail of Chief Complaint: Atraumatic right lower extremity swelling. Prior history of DVT. Informant: patient Onset/Context/Timing Onset: Days Timing: Continuous Current Severity: Mild Maximum Severity: Mild Narrative Narrative: 59-year-old female history of prior DVT already on Eliquis. Complaining of more swelling to her right lower extremity for the last 1 to 2 weeks. Concern for DVT. Denies any chest pain, shortness of breath nor hemopt ysis. Prior similar symptoms: Yes Recent Illness/Hospitalization: No PFSH PFSH Medical History DVT (deep venous thrombosis) Hyperlipemia Psoriatic arthritis Home Medications apixaban 5 mg PO BID 10/05/18 [History Last Taken 10/05/18] clobetasol 1 applic TP BID 10/05/18 [History Last Taken 10/05/18] ergocalciferol (vitamin D2) 50,000 unit PO SALAMANCA 10/05/18 [History Last Taken 09/30/18] furosemide 20 mg PO DAILY 10/05/18 [History Last Taken 10/05/18] amitriptyline 25 mg PO QHS #30 tab 10/06/18 [Rx Last Taken Unknown] duloxetine 60 mg PO DAILY 06/22/20 [History Last Taken Unknown] rosuvastatin 10 mg PO DAILY 06/22/20 [History Last Taken Unknown] Allergy/AdvReac Type Severity Reaction Status Date / Time Penicillins [PCN] Allergy Rash Verified 06/22/20 17:25 Surgical History History of cholecystectomy Social History Smoking Status: Never smoker ROS ROS ED ROS Narrative Patient denies any chest pain, shortness of breath or hemoptysis. The swelling in her right leg is atraumatic. Review of Systems ROS Unobtainable: Denies due to encephalopathy Constitutional Constitutional ED: Denies fever(s) Eyes Eyes: Denies change in vision ENT ENT ED: Denies sore throat Cardiovascular Cardiovascular: Denies chest pain Respiratory/Chest Respiratory/Chest: Denies cough or dyspnea Gastrointestinal Gastrointestinal: Denies abdominal pain, diarrhea, melena, nausea or vomiting Genitourinary Genitourinary ED: Denies dysuria or hematuria Musculoskeletal Musculoskeletal: Denies arthralgias or myalgias Integumentary Denies rash Neurologic Neurologic: Denies headache(s) Psychiatric Psychiatric: Denies depression Endocrine Endocrinology: Denies polyuria Allergic/Immunologic Allergic/Immunologic ED: Denies urticaria EXAM Physical Exam Narrative Exam Narrative: Middle-aged female no acute distress. Vital signs stable afebrile. Pulse ox 94% room air no hypoxia. H EENT exam unremarkable. Lungs clear to auscultation bilaterally. Heart regular rhythm no murmur. Abdomen soft nontender normal bowel sounds no peritoneal signs. Moving all 4 extremities. Neurovascular intact. No calf tenderness to the right leg. Dorsi plantar flexion intact. Neurologically patient is awake alert with no focal motor deficits. Const Vital Signs: 06/22/20 17:25 Temperature 99.6 F H Temperature Source Temporal Pulse Rate 118 H Respiratory Rate 18 Blood Pressure 142/104 H Blood Pressure Mean 116 Pulse Ox 94 Oxygen Delivery Method Room Air HEENT Reports moist mucous membranes Negative for trauma or tenderness Eyes PERRL and EOMs intact bilaterally Neck no lymphadenopathy and supple Chest Wall inspection of chest normal Resp normal respiratory effort and clear to auscultation bilaterally Auscultation: Negative for rales, rhonchi or diminished lung sounds Cardio regular rate, regular rhythm and no murmurs GI normal to inspection, nondistended, normoactive bowel sounds, non-tender and non-distended Auscultation: normoactive bowel sounds Palpation: soft Back/Spine no CVA tenderness General Back: Negative for CVA tenderness Extremity normal to inspection General Extremety ED: Negative for tenderness Neuro oriented x3 and CN's II-XII intact bilaterally Sensorium / Orientation: alert Motor Exam: strength 5/5 throughout Psych mental status grossly normal MDM MDM MDM Narrative Medical decision making narrative: Noninvasive study being obtained to the patient's right lower extremity. Reported as negative. Discussed test result with patient. She is doing well at 6:20 PM and will be discharged to home. Lab Data Attestation: I reviewed the patient's lab results. Discharge Plan Triage Chief Complaint: Lower Extremity Injury ED Provider: Zion Palma Dx/Rx/DC Orders Clinical Impression: Leg swelling Instructions: ED Peripheral Edema, Unilateral Prescriptions: No Action furosemide 40 MG tablet 20 mg PO DAILY RF: 0 ergocalciferol (vitamin D2) 50,000 UNIT capsule 50,000 unit PO SALAMANCA RF: 0 clobetasol 50 ML solution 1 applic TP BID RF: 0 apixaban 5 MG tablet 5 mg PO BID RF: 0 amitriptyline 25 MG tablet 25 mg PO QHS Qty: 30 RF: 2 rosuvastatin 10 mg Tablet 10 mg PO DAILY RF: 0 duloxetine 30 mg capsule,delayed release(DR/EC) 60 mg PO DAILY RF: 0 Primary Care Provider: Shana Moody Referrals: Shana Moody MD [Primary Care Provider] - 3-5 Days if not improving Activity Restrictions/Additional Instructions: Elevate your right leg to decrease any swelling if not improving follow-up with your doctor. Disposition Disposition: Home, self care
--- NOTE | 2020-06-22 17:41 | US_ITS ---
HISTORY: RT LATERAL THIGH SWELLING EXAMINATION: US Venous Duplex LE Unilat / Limited: TECHNIQUE: [place] scale, pulse wave, and color flow Doppler imaging was performed of the lower extremity venous system. The right greater saphenous, common femoral, femoral, popliteal, peroneal and posterior tibial veins were interrogated. Contralateral common femoral vein also evaluated. COMPARISON: None FINDINGS: # of images incl. paperwork: 39 There is normal compression, augmentation, and color flow signal throughout the visualized deep lower extremity veins. US/Venous Duplex Imag/Limited/Uni IMPRESSION: No sonographic evidence of deep venous thrombosis. at 1846 Reported and signed by: Elias Campos MD Electronically Signed: Elias Campos MD at 18:45 EDT Tel , Service support ,
[2020-06-22 18:41] VITALS: BP 133/69; PULSE 72; RESP 15; O2SAT 97
== END 2020-06-22 18:42 | disposition home or self-care (01) ==
PROVIDERS: Emergency Provider Emergency Medicine; PCP Internal Medicine
DX: M79.89 Other specified soft tissue disorders (principal); E78.5 Hyperlipidemia, unspecified; Z79.01 Long term (current) use of anticoagulants; Z86.718 Personal history of other venous thrombosis and embolism; Z79.899 Other long term (current) drug therapy
CPT/HCPCS: 93971; 99282

== ENCOUNTER → 2020-06-25 08:06 | Outpatient (CLI) | payer OTHER, SELFPAY ==
[2018-10-06 08:43] VITALS: BMI 39.8
[2020-06-22 17:25] VITALS: BMI 40.8
--- NOTE | 2020-06-25 08:08 | US_ITS ---
STUDY: ABDOMINAL ULTRASOUND - RIGHT UPPER QUADRANT REASON FOR VISIT: Female, 59 years old ELEVATED LIVER ENZYMES TECHNIQUE: Ultrasound evaluation of the right upper quadrant was performed with real-time and static german-scale imaging. TECHNICAL QUALITY: Limited. Examination limited due to obesity. COMPARISON: None. FINDINGS: Liver: The liver is enlarged and measures 20 cm. There is increased echogenicity consistent with fatty infiltration. The bile ducts are within normal limits. There is hepatic color flow. The direction of portal flow is hepatopetal. There is no demonstrated mass lesion. Gallbladder: The patient is status post cholecystectomy. Common Bile Duct (C.B.D.): The common bile duct measures 11 mm. Pancreas: Normal size of the head, body of the pancreas. The tail portion is obscured due to overlying bowel gas. There is increased echogenicity of the pancreas. There is no demonstrated pancreatic mass or cyst. Right Kidney: Normal size of the right kidney. The right kidney measures 13 cm x 4.5 cm x 5.9 cm. Normal renal cortex. The right cortex measures 2.3 cm. There is no demonstrated renal mass or cyst. There is no right hydronephrosis. US/Liver IMPRESSION: Hepatomegaly and diffuse fatty infiltration of the liver. Status post cholecystectomy. Electronically Signed: Alexandro Cruz MD at 9:19 EDT , Service support ,
== END ==
PROVIDERS: PCP Internal Medicine; Referring Provider Internal Medicine Rheumatology; Visit Provider Internal Medicine Rheumatology
DX: L40.59 Other psoriatic arthropathy (principal); Z79.899 Other long term (current) drug therapy; L40.8 Other psoriasis; M79.7 Fibromyalgia; M21.41 Flat foot [pes planus] (acquired), right foot; G43.909 Migraine, unspecified, not intractable, without status migrainosus; G47.33 Obstructive sleep apnea (adult) (pediatric); Z86.718 Personal history of other venous thrombosis and embolism; M79.89 Other specified soft tissue disorders; E78.5 Hyperlipidemia, unspecified
CPT/HCPCS: 76705

== ENCOUNTER → 2020-07-20 13:19 | Outpatient (CLI) | payer OTHER, SELFPAY ==
[2020-06-22 17:25] VITALS: BMI 40.8
[2020-07-20 16:17] LABS: ALB/GLOB Ratio 1.1 RATIO (0.9-2.4); AST(SGOT) 20 U/L (15-37); Alanine Aminotransfer ALT/SGPT 35 U/L (13-56); Albumin, Serum 3.9 g/dL (3.2-5.0); Alkaline Phosphatase 128 U/L (45-117); Anion Gap 8 (5-15); BUN 13 mg/dL (7-18); Calcium,Total 9.2 mg/dL (8.5-10.1); Chloride 106 mmol/L (98-107); Creatinine, Serum 0.81 mg/dL (0.55-1.02); EST Glomerular Filtration Rate 76 mL/min (>60); Est Glom Filt Rate - Afr Amer 93 mL/min (>60); Globulin 3.7 g/dL (2.2-4.2); Glucose 84 mg/dL (74-106); Potassium 3.9 mmol/L (3.5-5.1); Protein, Total 7.6 g/dL (6.4-8.2); Sodium Level 140 mmol/L (136-145)
== END ==
PROVIDERS: PCP Internal Medicine; Referring Provider Internal Medicine Rheumatology; Visit Provider Internal Medicine Rheumatology
DX: L40.59 Other psoriatic arthropathy (principal); Z79.899 Other long term (current) drug therapy; L40.8 Other psoriasis; M79.7 Fibromyalgia; M21.41 Flat foot [pes planus] (acquired), right foot; G43.909 Migraine, unspecified, not intractable, without status migrainosus; G47.33 Obstructive sleep apnea (adult) (pediatric); M79.89 Other specified soft tissue disorders; E78.5 Hyperlipidemia, unspecified; Z86.718 Personal history of other venous thrombosis and embolism
CPT/HCPCS: 36415; 80053

== ENCOUNTER 2020-09-23 11:10 | Emergency (ER) | payer OTHER, SELFPAY ==
[2020-09-23 11:11] VITALS: BP 132/73; PULSE 112; RESP 19; TEMP 36.4; O2SAT 96; BMI 39.5
--- NOTE | 2020-09-23 11:23 | EDS_ITS ---
HPI HPI - GI History of Present Illness Chief Complaint: Flank Pain Informant: patient Narrative Narrative: 60-year-old female presents to the emergency room with right flank pain. She tells me that she has had this pain intermittently for 3 months but last week it got worse. She was diagnosed with a urinary tract infection at a urgent care and started on an antibiotic. She states that she developed diarrhea on Monday. Her pain in her flank has gotten significantly worse. She states it does seem to wrap around to the front. She went to her primary care doctor and was referred here to the emergency department. [facility] Medical History (Updated 09/23/20 @ 13:[address] Zeb Beaver DO) DVT (deep venous thrombosis) Hyperlipemia Psoriatic arthritis Home Medications apixaban 5 mg PO BID 10/05/18 [History Last Taken 10/05/18] clobetasol 1 applic TP BID 10/05/18 [History Last Taken 10/05/18] ergocalciferol (vitamin D2) 50,000 unit PO SALAMANCA 10/05/18 [History Last Taken 09/30/18] furosemide 20 mg PO DAILY 10/05/18 [History Last Taken 10/05/18] amitriptyline 25 mg PO QHS #30 tab 10/06/18 [Rx Last Taken Unknown] duloxetine 60 mg PO DAILY 06/22/20 [History Last Taken Unknown] rosuvastatin 10 mg PO DAILY 06/22/20 [History Last Taken Unknown] apremilast [Otezla] 30 mg PO BID 09/23/20 [History Last Taken Unknown] hydrocodone-acetaminophen 1 tab PO Q6H PRN PRN 3 Days #12 tablet 09/23/20 [Rx Last Taken Unknown] tramadol 50 mg PO TID PRN 09/23/20 [History Last Taken Unknown] Allergy/AdvReac Type Severity Reaction Status Date / Time Penicillins [PCN] Allergy Rash Verified 09/23/20 11:11 Surgical History (Updated 09/23/20 @ 12:04 by Radha Cowart) History of cholecystectomy History of hysterectomy Social History (Updated 09/23/20 @ 11:[address] Zeb Beaver DO) Smoking Status: Never smoker substance use type: does not use ROS ROS ED Constitutional Constitutional ED: Denies chills or weight loss Eyes Eyes: Denies change in vision or diplopia ENT ENT ED: Denies ear pain, rhinorrhea or sore throat Cardiovascular Cardiovascular: Denies chest pain, orthopnea, palpitations or racing heartbeat Respiratory/Chest Respiratory/Chest: Denies cough, dyspnea or orthopnea Gastrointestinal Gastrointestinal: Reports abdominal pain, diarrhea and nausea; Denies vomiting Genitourinary Genitourinary ED: Denies dysuria, hematuria or urinary frequency Musculoskeletal Musculoskeletal: Reports other Details: Right flank pain ; Denies arthralgias or myalgias Integumentary Denies abscess or rash Neurologic Neurologic: Denies headache(s) or weakness Psychiatric Psychiatric: Denies anxiety, depression, suicidal ideation or suicidal thoughts Endocrine Endocrinology: Denies polydipsia, polyphagia or polyuria Allergic/Immunologic Allergic/Immunologic ED: Denies mouth swelling, tongue swelling or urticaria EXAM Physical Exam Const Vital Signs: 09/23/20 11:11 09/23/20 12:04 09/23/20 14:00 Temperature 97.5 F L Temperature Source Temporal Pulse Rate 112 H Respiratory Rate 19 H Respiratory Effort Normal Non-Labored Respiratory Pattern Normal Blood Pressure 132/73 H Blood Pressure Mean 92 Pulse Ox 96 87 Oxygen Delivery Method Room Air Room Air 09/23/20 14:02 Temperature Temperature Source Pulse Rate 79 Respiratory Rate 16 Respiratory Effort Respiratory Pattern Blood Pressure 126/84 H Blood Pressure Mean 98 Pulse Ox 98 Oxygen Delivery Method Room Air Positive well nourished, well developed and obese General Appearance ED: well developed Nutritional Appearance: obese HEENT Reports normocephalic, head/scalp atraumatic and moist mucous membranes Eyes PERRL and EOMs intact bilaterally Neck no lymphadenopathy, supple and no JVD Resp normal respiratory effort and clear to auscultation bilaterally Cardio regular rate, regular rhythm and no murmurs GI normal to inspection, nondistended, normoactive bowel sounds Palpation: soft and tender RLQ and RUQ Back/Spine no CVA tenderness and normal ROM Extremity normal to inspection General Extremety ED: Negative for edema General Extremity: Negative for edema Neuro oriented x3 and CN's II-XII intact bilaterally Sensorium / Orientation: alert Motor Exam: strength 5/5 throughout Psych mental status grossly normal Mood & Affect: Negative for depressed or tearful Skin no rashes or lesions noted and no wounds MDM MDM MDM Narrative Medical decision making narrative: Basic blood work is essentially negative. Urinalysis does not show any overt infection. White count 6.4. CT the abdomen pelvis with IV contrast obtained and was negative for acute process. Patient had received morphine and Zofran. I went to go update the patient I found her writhing in the bed holding her epigastrium complaining of severe pressure. She got another dose of morphine and some Ativan. I am not sure why the patient is having such extreme pain given the negative work-up. I do not see anything she needs to be admitted to the hospital. Her pain is improved on repeat examination. I think she can follow-up with primary care Lab Data Attestation: I reviewed the patient's lab results. Labs: Laboratory Results - last 24 hr 09/23/20 09/23/20 09/23/20 11:51 11:54 11:54 WBC 6.4 RBC 5.24 Hgb 15.6 H Hct 48.0 H MCV 91.6 MCH 29.8 MCHC 32.5 RDW Std Deviation 44.1 H RDW Coeff of Clarice 13.0 Plt Count 254 MPV 9.0 Immature Gran % (Auto) 0.500 Neut % (Auto) 52.8 Lymph % (Auto) 34.2 [place] % (Auto) 10.3 H Eos % (Auto) 1.6 Baso % (Auto) 0.6 Absolute Neuts (auto) 3.4 Absolute Lymphs (auto) 2.20 Nucleated RBC % 0 Sodium 138 Potassium 3.9 Chloride 102 Carbon Dioxide 28.0 Anion Gap 8 BUN 12 Creatinine 0.95 Estim Creat Clear Calc 64.99 Est GFR (MDRD) Af Amer 77 Est GFR (MDRD) Non-Af 63 BUN/Creatinine Ratio 12.6 Glucose 113 H Calcium 9.5 Total Bilirubin 0.60 Direct Bilirubin 0.14 AST 34 ALT 51 Alkaline Phosphatase 148 H Total Protein 8.4 H Albumin 4.2 Globulin 4.2 Lipase 114 Urine Color Yellow Urine Clarity Clear Urine pH 6.0 Ur Specific [place] 1.015 Urine Protein Negative Urine Glucose (UA) Normal Urine Ketones Negative Urine Occult Blood 10 H Urine Nitrite Negative Urine Bilirubin Negative Urine Urobilinogen Normal Ur Leukocyte Esterase 25 H Urine RBC 0 SEEN Urine WBC 0-5 SEEN Ur Squamous Epith Cells 0 SEEN Urine Bacteria 1+ Urine Mucus 0 SEEN Radiography Diagnostic Testing: Radiology Impression Abdomen/Pelvis CT 09/23/20 11:29 IMPRESSION: Fatty infiltration of the liver. Small left adrenal adenoma. Left renal cyst. Electronically Signed: Alexandro Cruz MD at 13:11 EDT , Service support , Discharge Plan Triage Chief Complaint: Flank Pain ED Provider: Zeb Beaver Dx/Rx/DC Orders Clinical Impression: Abdominal pain Instructions: ED Abdominal Pain Unkn Cause Fem Prescriptions: New hydrocodone-acetaminophen [hydrocodone-acetaminophen] 1 TABLET tablet 1 tab PO Q6H PRN PRN (Reason: Pain) 3 Days Qty: 12 RF: 0 No Action furosemide 40 MG tablet 20 mg PO DAILY RF: 0 ergocalciferol (vitamin D2) 50,000 UNIT capsule 50,000 unit PO SALAMANCA RF: 0 clobetasol 50 ML solution 1 applic TP BID RF: 0 apixaban 5 MG tablet 5 mg PO BID RF: 0 amitriptyline 25 MG tablet 25 mg PO QHS Qty: 30 RF: 2 rosuvastatin 10 mg Tablet 10 mg PO DAILY RF: 0 duloxetine 30 mg capsule,delayed release(DR/EC) 60 mg PO DAILY RF: 0 tramadol 50 mg tablet 50 mg PO TID PRN (Reason: Pain) RF: 0 Otezla 30 mg tablet 30 mg PO BID RF: 0 Primary Care Provider: Shana Moody Referrals: Shana Moody MD [Primary Care Provider] - As soon as possible Disposition Disposition: Home, Self Care
--- NOTE | 2020-09-23 11:29 | CT_ITS ---
STUDY: CT ABDOMEN AND PELVIS WITH CONTRAST REASON FOR EXAM: Female, 60 years old. Right flank pain. Possible UTI. RADIATION DOSAGE (If Supplied By Facility): CTDIvol = ( 17.00 ) mGy, DLP = ( 1317.18 ) mGycm TECHNIQUE: Transaxial images were obtained from the dome of the diaphragm to the symphysis pubis without oral contrast. IV 100mL [id number]-300 was administered. Sagittal and coronal images were reconstructed. Individualized dose optimization techniques were used for this CT. COMPARISON: None. FINDINGS: Minimal degree of increased linear markings at the lung bases suggestive of linear atelectasis. The visualized portions of the heart are within normal limits. There is decreased attenuation of the liver consistent with steatosis. There are surgical clips in the gallbladder fossa consistent with a prior cholecystectomy. Normal spleen. Normal pancreas. There is a small, circumscribed, smooth, low attenuation left adrenal mass, consistent with an adrenal adenoma. This measures 2.1 cm. Normal right adrenal gland. Normal right kidney. Normal left kidney. Incidental note is made of a left retrocrural caval renal vein. There is a 2.4 cm x 2.2 cm cyst in the posterior medial left kidney. Normal visualized stomach. Normal small intestine. Normal colon. The appendix is visualized and appears normal. There is scattered atherosclerotic calcification of the abdominal aorta, without a demonstrated aneurysm. Normal inferior vena cava. Normal retroperitoneum. Normal urinary bladder. There is absence of the uterus consistent with a prior hysterectomy. There is a small umbilical hernia containing fat. There are mild degenerative changes of the visualized lumbar spine. CT/Abdomen/Pelvis W IV Cont ONLY IMPRESSION: Fatty infiltration of the liver. Small left adrenal adenoma. Left renal cyst. Electronically Signed: Alexandro Cruz MD at 13:11 EDT , Service support ,
[2020-09-23 11:59] LABS: Mucous, Urine 0 SEEN /hpf (<or=2+); Red Blood Cells-Urine 0 SEEN /hpf (0-5); Squamous Epithelial Cells - UA 0 SEEN /hpf (5-10)
[2020-09-23 12:01] LABS: Color, Urine Yellow (Yellow); Glucose, Dipstick Normal (Normal); Ketone-Dipstick Negative (Negative); Leukocyte Esterase-Dipstick 25 /ul (Negative); Nitrite-Dipstick Negative (Negative); Occult Blood-Urine 10 /ul (Negative); Protein-Dipstick Negative (Negative); Specific Gravity, Urine 1.015 (1.002-1.030); Urine Bilirubin Dipstick Negative (Negative); Urine Clarity Clear (Clear); Urine Urobilinogen Normal (Normal)
[2020-09-23] MEDS: Morphine 4 MG/ML Syringe IV ×2 (12:01→13:21)
[2020-09-23 12:02] LABS: Absolute Neutrophil Count 3.4 X10^3/uL (2.0-7.7); Basophil# 0.04 X10^3/uL; Basophil% 0.6 % (0-1); Eosinophils% 1.6 % (0-5); Hemoglobin 15.6 g/dL (12.0-15.0); Lymphocyte % 34.2 % (19-41); Mean Corp Hgb Conc 32.5 g/dL (32-36); Mean Corpuscular Hgb 29.8 pg (27.0-32.0); Mean Corpuscular Volume 91.6 fL (81-99); Monocyte# 0.66 X10^3/uL; Monocyte% 10.3 % (0-10); NRBC Flagged by Analyzer 0 % (0-5); Neutrophil % 52.8 % (47-70); Platelet Count 254 K/mm3 (150-450); RBC Distribution Width SD 44.1 fl (35.1-43.9); Red Blood Count 5.24 M/mm3 (4.2-5.4); White Blood Count 6.4 K/mm3 (4.4-11.0)
[2020-09-23] MEDS: Ondansetron 4 MG/2 ML Vial IV (12:02)
[2020-09-23 12:12] LABS: Bacteria 1+ /hpf (None Seen); White Blood Cells 0-5 SEEN /hpf (0-5)
[2020-09-23 12:29] LABS: AST(SGOT) 34 U/L (15-37); Alanine Aminotransfer ALT/SGPT 51 U/L (13-56); Albumin, Serum 4.2 g/dL (3.2-5.0); Alkaline Phosphatase 148 U/L (45-117); Anion Gap 8 (5-15); BUN 12 mg/dL (7-18); BUN/Creat Ratio 12.6 RATIO (10-20); Bilirubin, Direct 0.14 mg/dL (0.00-0.30); Calcium,Total 9.5 mg/dL (8.5-10.1); Chloride 102 mmol/L (98-107); Creatinine, Serum 0.95 mg/dL (0.55-1.02); EST Glomerular Filtration Rate 63 mL/min (>60); Est Glom Filt Rate - Afr Amer 77 mL/min (>60); Estimated Creatinine Clearance 64.99 ml/min; Globulin 4.2 g/dL (2.2-4.2); Glucose 113 mg/dL (74-106); Lipase 114 U/L (73-393); Potassium 3.9 mmol/L (3.5-5.1); Protein, Total 8.4 g/dL (6.4-8.2); Sodium Level 138 mmol/L (136-145)
[2020-09-23] MEDS: LORazepam 2 MG/ML Syringe 1 MG IV (13:34)
[2020-09-23 14:00] VITALS: O2SAT 87
[2020-09-23 14:02] VITALS: BP 126/84; PULSE 79; RESP 16; O2SAT 98
[2020-09-23 14:51] VITALS: BP 126/84; PULSE 100; RESP 17; O2SAT 99
== END 2020-09-23 16:41 | disposition home or self-care (01) ==
PROVIDERS: Emergency Provider Emergency Medicine; PCP Internal Medicine
DX: R10.9 Unspecified abdominal pain (principal); K76.0 Fatty (change of) liver, not elsewhere classified; N39.0 Urinary tract infection, site not specified; D35.02 Benign neoplasm of left adrenal gland; E78.5 Hyperlipidemia, unspecified; N28.1 Cyst of kidney, acquired; L40.50 Arthropathic psoriasis, unspecified; E66.9 Obesity, unspecified; Z90.49 Acquired absence of other specified parts of digestive tract; Z90.710 Acquired absence of both cervix and uterus; Z79.01 Long term (current) use of anticoagulants; Z86.718 Personal history of other venous thrombosis and embolism
CPT/HCPCS: 74177; 80048; 80076; 81001; 83690; 85025; 96374; 96375; 96376; 99284; Q9967; A4216; J2405

== ENCOUNTER → 2020-11-18 10:56 | Outpatient (CLI) | payer OTHER, SELFPAY ==
[2020-11-18 12:23] LABS: Absolute Lymphocyte Count 3.53 X10^3/uL (0.83-4.51); Absolute Neutrophil Count 2.9 X10^3/uL (2.0-7.7); Basophil# 0.06 X10^3/uL; Basophil% 0.8 % (0-1); Eosinophil# 0.17 X10^3/uL; Eosinophils% 2.3 % (0-5); Hemoglobin 14.5 g/dL (12.0-15.0); Lymphocyte # 3.53 X10^3/ul (0.83-4.51); Lymphocyte % 47.7 % (19-41); Mean Corp Hgb Conc 32.2 g/dL (32-36); Mean Corpuscular Hgb 29.2 pg (27.0-32.0); Mean Corpuscular Volume 90.5 fL (81-99); Mean Platelet Vol. 9.6 fl (6.2-12.0); Monocyte# 0.69 X10^3/uL; Monocyte% 9.3 % (0-10); NRBC Flagged by Analyzer 0 % (0-5); Neutrophil % 39.2 % (47-70); Platelet Count 240 K/mm3 (150-450); RBC Distribution Width CV 13.9 % (11.6-14.6); RBC Distribution Width SD 46.3 fl (35.1-43.9); Red Blood Count 4.97 M/mm3 (4.2-5.4); White Blood Count 7.4 K/mm3 (4.4-11.0)
[2020-11-18 13:09] LABS: AST(SGOT) 25 U/L (15-37); Alanine Aminotransfer ALT/SGPT 35 U/L (13-56); Albumin, Serum 3.8 g/dL (3.2-5.0); Alkaline Phosphatase 131 U/L (45-117); Anion Gap 8 (5-15); BUN 14 mg/dL (7-18); BUN/Creat Ratio 15.4 RATIO (10-20); Calcium,Total 9.5 mg/dL (8.5-10.1); Chloride 102 mmol/L (98-107); Creatinine, Serum 0.91 mg/dL (0.55-1.02); EST Glomerular Filtration Rate 67 mL/min (>60); Est Glom Filt Rate - Afr Amer 81 mL/min (>60); Glucose 130 mg/dL (74-106); Protein, Total 7.8 g/dL (6.4-8.2); Sodium Level 138 mmol/L (136-145)
== END ==
PROVIDERS: PCP Internal Medicine; Referring Provider Internal Medicine Rheumatology; Visit Provider Internal Medicine Rheumatology
DX: L40.59 Other psoriatic arthropathy (principal); Z79.899 Other long term (current) drug therapy; L40.8 Other psoriasis; M79.7 Fibromyalgia; M21.41 Flat foot [pes planus] (acquired), right foot
CPT/HCPCS: 36415; 80053; 85025

== ENCOUNTER 2021-05-24 12:39 | Outpatient (CLI) | payer OTHER, SELFPAY ==
[2021-05-24 14:59] LABS: Absolute Lymphocyte Count 3.24 X10^3/uL (0.83-4.51); Absolute Neutrophil Count 2.6 X10^3/uL (2.0-7.7); Basophil# 0.06 X10^3/uL; Basophil% 0.9 % (0-1); Eosinophil# 0.15 X10^3/uL; Eosinophils% 2.2 % (0-5); Hematocrit 44.9 % (37-47); Hemoglobin 15.1 g/dL (12.0-15.0); Lymphocyte # 3.24 X10^3/ul (0.83-4.51); Lymphocyte % 48.2 % (19-41); Mean Corp Hgb Conc 33.6 g/dL (32-36); Mean Corpuscular Hgb 29.5 pg (27.0-32.0); Mean Corpuscular Volume 87.7 fL (81-99); Mean Platelet Vol. 9.7 fl (6.2-12.0); Monocyte# 0.62 X10^3/uL; Monocyte% 9.2 % (0-10); NRBC Flagged by Analyzer 0 % (0-5); Neutrophil # 2.62 X10^3/uL (2.7-7.7); Neutrophil % 39.1 % (47-70); Platelet Count 221 K/mm3 (150-450); RBC Distribution Width CV 13.5 % (11.6-14.6); RBC Distribution Width SD 44.1 fl (35.1-43.9); Red Blood Count 5.12 M/mm3 (4.2-5.4); White Blood Count 6.7 K/mm3 (4.4-11.0)
[2021-05-24 15:47] LABS: AST(SGOT) 31 U/L (15-37); Alanine Aminotransfer ALT/SGPT 47 U/L (13-56); Alkaline Phosphatase 138 U/L (45-117); Anion Gap 8 (5-15); BUN 13 mg/dL (7-18); BUN/Creat Ratio 13.8 RATIO (10-20); Calcium,Total 8.9 mg/dL (8.5-10.1); Chloride 104 mmol/L (98-107); Creatinine, Serum 0.94 mg/dL (0.55-1.02); EST Glomerular Filtration Rate 64 mL/min (>60); Est Glom Filt Rate - Afr Amer 78 mL/min (>60); Globulin 3.9 g/dL (2.2-4.2); Glucose 98 mg/dL (74-106); Potassium 3.6 mmol/L (3.5-5.1); Protein, Total 7.9 g/dL (6.4-8.2); Sodium Level 137 mmol/L (136-145)
== END 2021-05-24 23:59 | disposition home or self-care (01) ==
LOC: MTLAB 12:40
PROVIDERS: PCP Internal Medicine; Referring Provider Internal Medicine Rheumatology; Visit Provider Internal Medicine Rheumatology
DX: L40.59 Other psoriatic arthropathy (principal); Z79.899 Other long term (current) drug therapy; L40.8 Other psoriasis; M79.7 Fibromyalgia; M21.41 Flat foot [pes planus] (acquired), right foot; K76.0 Fatty (change of) liver, not elsewhere classified; G43.909 Migraine, unspecified, not intractable, without status migrainosus; G47.33 Obstructive sleep apnea (adult) (pediatric)
CPT/HCPCS: 36415; 80053; 85025

== ENCOUNTER → 2021-11-17 | Outpatient (CLI) | payer OTHER, SELFPAY ==
[2021-11-17 10:14] LABS: Absolute Lymphocyte Count 2.81 X10^3/uL (0.83-4.51); Absolute Neutrophil Count 2.6 X10^3/uL (2.0-7.7); Basophil# 0.04 X10^3/uL; Basophil% 0.6 % (0-1); Eosinophil# 0.17 X10^3/uL; Eosinophils% 2.7 % (0-5); Hematocrit 44.1 % (37-47); Hemoglobin 14.5 g/dL (12.0-15.0); Lymphocyte # 2.81 X10^3/ul (0.83-4.51); Lymphocyte % 45.4 % (19-41); Mean Corp Hgb Conc 32.9 g/dL (32-36); Mean Corpuscular Hgb 30.1 pg (27.0-32.0); Mean Corpuscular Volume 91.5 fL (81-99); Mean Platelet Vol. 9.9 fl (6.2-12.0); Monocyte# 0.56 X10^3/uL; NRBC Flagged by Analyzer 0 % (0-5); Neutrophil # 2.57 X10^3/uL (2.7-7.7); Neutrophil % 41.7 % (47-70); Platelet Count 219 K/mm3 (150-450); RBC Distribution Width SD 47.3 fl (35.1-43.9); Red Blood Count 4.82 M/mm3 (4.2-5.4); White Blood Count 6.2 K/mm3 (4.4-11.0)
[2021-11-17 11:00] LABS: ALB/GLOB Ratio 0.9 RATIO (0.9-2.4); AST(SGOT) 36 U/L (15-37); Alanine Aminotransfer ALT/SGPT 48 U/L (13-56); Albumin, Serum 3.6 g/dL (3.2-5.0); Alkaline Phosphatase 152 U/L (45-117); Anion Gap 7 (5-15); BUN 12 mg/dL (7-18); BUN/Creat Ratio 13.4 RATIO (10-20); Calcium,Total 9.6 mg/dL (8.5-10.1); Chloride 107 mmol/L (98-107); EST Glomerular Filtration Rate 68 mL/min (>60); Est Glom Filt Rate - Afr Amer 82 mL/min (>60); Globulin 3.9 g/dL (2.2-4.2); Glucose 122 mg/dL (74-106); Potassium 3.9 mmol/L (3.5-5.1); Protein, Total 7.5 g/dL (6.4-8.2); Sodium Level 141 mmol/L (136-145)
== END | disposition home or self-care (01) ==
LOC: MTLAB 07:17
PROVIDERS: PCP Internal Medicine; Referring Provider Internal Medicine Rheumatology; Visit Provider Internal Medicine Rheumatology
DX: L40.59 Other psoriatic arthropathy (principal); E11.9 Type 2 diabetes mellitus without complications; Z79.899 Other long term (current) drug therapy; L40.8 Other psoriasis; M79.7 Fibromyalgia; M21.41 Flat foot [pes planus] (acquired), right foot; K76.0 Fatty (change of) liver, not elsewhere classified; G43.909 Migraine, unspecified, not intractable, without status migrainosus; G47.33 Obstructive sleep apnea (adult) (pediatric); Z86.718 Personal history of other venous thrombosis and embolism; M79.89 Other specified soft tissue disorders; E78.5 Hyperlipidemia, unspecified
CPT/HCPCS: 36415; 80053; 85025

== ENCOUNTER 2022-08-30 12:33 | Emergency (ER) | payer OTHER, SELFPAY ==
[2022-08-30] VITALS (15 sets, daily range): BP systolic 111–158; BP diastolic 59–89; PULSE 78–99; RESP 14–24; TEMP 36.6; O2SAT 93–98; BMI 42.7
--- NOTE | 2022-08-30 12:45 | ED.RN ---
pt had recent heart monitor x1 week.
--- NOTE | 2022-08-30 12:56 | CT_ITS ---
INDICATION: Right Flank Pain EXAMINATION: CT ABDOMEN AND PELVIS WITHOUT CONTRAST - CT Abdomen And Pelvis W/O Contrast Injection TECHNIQUE: Helically acquired images were obtained of the abdomen and pelvis without oral or IV contrast. A radiation dose optimization technique was used for this scan. IV Contrast dosage and agent: None. Oral contrast: None. RADIATION DOSAGE (If Supplied By Facility): CTDIvol = ( 23.98 ) mGy, DLP = ( 1288.35 ) mGycm COMPARISON: FINDINGS: LOWER CHEST: Lung bases are clear. No cardiomegaly or pericardial effusion. LIVER: There is diffuse attenuation of the liver parenchyma, consistent with fatty infiltration. No focal mass. GALLBLADDER AND BILIARY TREE: Patient is undergone prior cholecystectomy, and surgical clips are noted again in the gallbladder fossa. Common bile duct diameter is just under 1 cm. PANCREAS: No focal cystic or solid mass. SPLEEN: Normal size without focal cystic or solid mass. ADRENAL GLANDS: Unremarkable right adrenal. The well-defined 2 x 2 0.1 x 2.25 cm soft tissue nodule in the left adrenal is unchanged. KIDNEYS AND URETERS: Normal renal size and position. A well-defined 3 x 3.3 x 3.2 cm hypodense structure consistent with a cyst at the posterior midpole of the left kidney is mildly increased in size. No hydronephrosis. PERITONEUM: No ascites or free air. No other fluid collection. BOWEL: No evidence of acute appendicitis. No stomach or bowel distension. Stable small diverticulum at the junction of the left and sigmoid colon. No focal inflammatory change. LYMPH NODES: No enlarged mesenteric or retroperitoneal lymph nodes. VESSELS: Mild to moderate atherosclerotic calcification of the infrarenal abdominal aorta. Aorta is non-dilated. URINARY BLADDER: Unremarkable. REPRODUCTIVE ORGANS: Patient has undergone prior hysterectomy. The ovaries are nonvisualized. ABDOMINAL WALL: Stable small, fat-containing umbilical hernia. BONES: Stable degenerative changes of the spine, with disc height narrowing and endplate spurring most prominent at L4-5. 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 No lytic or blastic abnormality. CT/Abdomen/Pelvis without Cont IMPRESSION: 1. Fatty infiltration of liver again noted. 2. Prior cholecystectomy. 3. Stable 2.25 cm left adrenal mass consistent with an adenoma. 4. 3.3 cm cortical cyst posterior midpole of left kidney is mildly increased in size. No hydronephrosis. 5. Mild to moderate infrarenal abdominal aortic atherosclerotic calcification. No demonstrated aneurysm. 6. Prior hysterectomy. 7. Stable, small, fat-containing umbilical hernia. 8. 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 Electronically Signed: Hesham Torres MD at 13:54 EDT Reading Location ID and State: [id number] / Unknown , Service support ,
[2022-08-30 13:06] LABS: Absolute Lymphocyte Count 3.94 X10^3/uL (0.83-4.51); Absolute Neutrophil Count 2.3 X10^3/uL (2.0-7.7); Basophil# 0.05 X10^3/uL; Basophil% 0.7 % (0-1); Eosinophil# 0.18 X10^3/uL; Eosinophils% 2.6 % (0-5); Hematocrit 45.8 % (37-47); Hemoglobin 15.2 g/dL (12.0-15.0); Lymphocyte # 3.94 X10^3/ul (0.83-4.51); Lymphocyte % 56.4 % (19-41); Mean Corp Hgb Conc 33.2 g/dL (32-36); Mean Corpuscular Hgb 30.3 pg (27.0-32.0); Mean Corpuscular Volume 91.4 fL (81-99); Mean Platelet Vol. 9.6 fl (6.2-12.0); Monocyte# 0.51 X10^3/uL; Monocyte% 7.3 % (0-10); NRBC Flagged by Analyzer 0 % (0-5); Neutrophil # 2.28 X10^3/uL (2.7-7.7); Neutrophil % 32.6 % (47-70); Platelet Count 170 K/mm3 (150-450); RBC Distribution Width CV 14.2 % (11.6-14.6); RBC Distribution Width SD 47.8 fl (35.1-43.9); Red Blood Count 5.01 M/mm3 (4.2-5.4)
[2022-08-30] MEDS: Aspirin 81 MG TAB.CHEW 324 MG PO (13:09)
[2022-08-30] MEDS: 0.9% Normal Saline 1,000 ML 1000 ML IV (13:10)
[2022-08-30 13:22] LABS: Anion Gap 7 (5-15); BUN 11 mg/dL (7-18); BUN/Creat Ratio 10.6 RATIO (10-20); Calcium,Total 9.2 mg/dL (8.5-10.1); Chloride 105 mmol/L (98-107); Creatinine, Serum 1.04 mg/dL (0.55-1.02); EST Glomerular Filtration Rate 57 mL/min (>60); Est Glom Filt Rate - Afr Amer 69 mL/min (>60); Estimated Creatinine Clearance 57.86 ml/min; Glucose 139 mg/dL (74-106); Potassium 3.6 mmol/L (3.5-5.1); Sodium Level 139 mmol/L (136-145); Troponin-I HS (w/2H Reflex) 5 pg/mL (3.0-54.0)
--- NOTE | 2022-08-30 13:30 | RAD_ITS ---
INDICATION: Chest pain EXAMINATION/TECHNIQUE: X-RAY - AP upright XR Chest 1 View COMPARISON: None. FINDINGS: LINES/DEVICES: None. LUNGS: No consolidation, edema or effusion. No pneumothorax. MEDIASTINUM AND CARDIOVASCULAR STRUCTURES: Cardiac silhouette not enlarged. Central airways and mediastinal contour are unremarkable. BONES AND SOFT TISSUES: There are degenerative changes of the midthoracic spine. No paraspinal soft tissue swelling. RAD/Chest 1 View (Portable) IMPRESSION: No acute cardiopulmonary disease. Electronically Signed: Hesham Torres MD at 14:08 EDT Reading Location ID and State: [id number] / Unknown , Service support ,
--- NOTE | 2022-08-30 14:12 | ED.VIS.CHEST ---
HPI History of Present Illness Chief Complaint: Chest Pain Narrative Narrative: 62-year-old female past medical history of DVT, on blood thinner, presents with chest pain that began within the last hour. She states that felt as if she were having pain all across her chest. She denies any vomiting, shortness of breath, or diaphoresis and may have felt slightly nauseated. Additionally, she states that she states she had a kidney stone because she had right flank pain yesterday. She denies any exacerbating or alleviating factors. States that she was recently on a heart monitor by her primary care provider. She is concerned because of the chest pain that she felt was severe across her chest prior to arrival. [facility] Medical History Chest pain DVT (deep venous thrombosis) Hyperlipemia Psoriatic arthritis Home Medications apixaban 5 mg tablet 5 mg PO BID blood thinner 10/05/18 [History Last Taken 10/05/18] furosemide 40 mg tablet 40 mg PO DAILY diuretic 10/05/18 [History Last Taken 10/05/18] amitriptyline 25 mg tablet 25 mg PO QHS #30 tabs 10/06/18 [Rx Last Taken Unknown] rosuvastatin 10 mg tablet 10 mg PO DAILY 06/22/20 [History Last Taken Unknown] tramadol 50 mg tablet 50 mg PO TID PRN Pain 09/23/20 [History Last Taken Unknown] adalimumab 40 mg/0.8 mL subcutaneous pen kit (Humira Pen) 40 mg subcut Q14D 08/30/22 [History Last Taken Unknown] metformin 500 mg tablet,extended release 24 hr 500 mg PO DAILY 08/30/22 [History Last Taken Unknown] pantoprazole 40 mg tablet,delayed release 40 mg PO DAILY 08/30/22 [History Last Taken Unknown] potassium chloride 10 mEq tablet,extended release 10 meq PO DAILY 08/30/22 [History Last Taken Unknown] Allergy/AdvReac Type Severity Reaction Status Date / Time Penicillins [PCN] Allergy Rash Verified 08/30/22 12:40 Surgical History History of cholecystectomy History of hysterectomy Social History Smoking Status: Never smoker substance use type: does not use ROS ROS ED ROS Narrative Constitutional: No fever, no chills. HEENT: No sore throat. No neck pain. No loss of vision. No rhinorrhea. Cardiovascular: Positive chest pain. No palpitations. No pedal edema. Respiratory: No cough, no shortness of breath. Abdominal: No abdominal pain. Slight nausea. No vomiting. Genitourinary: No dysuria. No hematuria. Musculoskeletal: No myalgias. No arthralgias. Neurologic: No headaches. No dizziness. No lightheadedness. Skin: No rash. No change in color. Psychiatric: No depression. No anxiety. EXAM Physical Exam Narrative Exam Narrative: Afebrile. Vital signs noted. No acute distress. HEENT: Normocephalic. Atraumatic. PERRL, EOMI. Neck soft and supple. No point tenderness or step off. Cardiovascular: Regular rate and rhythm. No murmurs, rubs, or gallops appreciated. Respiratory: No tachypnea. Lungs clear to auscultation bilaterally. Gastrointestinal: Abdomen soft, nontender, with normoactive bowel sounds. No rebound or guarding. Neurological: Awake. Alert. Nonfocal, nonlateralizing. Skin: No rash. Normal color. No pallor. Musculoskeletal: No pedal edema. Full range of motion extremities. Const Vital Signs: 08/30/22 12:34 08/30/22 12:38 08/30/22 12:40 Temperature 97.9 F Temperature Source Oral Pulse Rate 99 Respiratory Rate 24 H Respiratory Effort Normal Non-Labored Blood Pressure 158/89 H 158/89 H Blood Pressure Mean 112 112 Pulse Ox 96 Oxygen Delivery Method Room Air 08/30/22 13:02 Temperature Temperature Source Pulse Rate Respiratory Rate Respiratory Effort Blood Pressure Blood Pressure Mean Pulse Ox Oxygen Delivery Method Room Air Heart Score History: Slightly/Non-Suspicious ECG: Normal Age: >45 - <65 years Risk Factors: 1 or 2 Risk Factors Troponin: </= Normal Limit Score: 2 MDM MDM MDM Narrative Medical decision making narrative: Concern would be for pulmonary embolism versus ACS. As she states she had right flank pain yesterday but denies any dysuria or hematuria, she could have a kidney stone. She is currently pain-free regarding her flank pain. Comprehensive work-up was pursued. EKG was obtained and interpreted by myself as normal sinus tachycardia at 102 bpm without ectopy or acute ST changes. No STEMI. CBC was obtained and reviewed which shows WBC count normal at 7.0, hemoglobin slightly hemoconcentrated at 15.2, platelet count normal at 170. Electrolyte panel is grossly unremarkable with normal sodium of 139, potassium 3.6, BUN of 11 and creatinine 1.04. Glucose is slightly elevated 139 but she has a normal anion gap of 7. Initial high-sensitivity troponin is 5. Chest x-ray interpreted by myself independently shows no evidence of acute process no pneumothorax or pneumonia. I reviewed the radiology report which confirms my independent interpretation. CT of the abdomen and pelvis does show no acute process in review of the radiology report. She has an adenoma on the left which has been present previously. There might be a cyst on the right kidney which has slightly enlarged, but no acute process or hydronephrosis. Fatty liver is once again seen. At this point in time, I am unsure as to the cause of her chest pain, but given that she had it most recently, 2-hour troponin will be checked. Patient will be signed out to the oncoming physician, Dr. Lai Aldana, to check for delta troponin. As long as it is normal I do feel that she would be able to be discharged to follow-up with her primary care provider. Disposition is pending delta troponin. She is in stable condition. History & Record Review Discussion w/independent historian: Patient Additional record(s) reviewed:: Prior ED visit and Prior labs Lab Data Attestation: I reviewed the patient's lab results. Labs: Laboratory Results - last 24 hr 08/30/22 12:45 WBC 7.0 RBC 5.01 Hgb 15.2 H Hct 45.8 MCV 91.4 MCH 30.3 MCHC 33.2 RDW Std Deviation 47.8 H RDW Coeff of Clarice 14.2 Plt Count 170 MPV 9.6 Immature Gran % (Auto) 0.400 Neut % (Auto) 32.6 L Lymph % (Auto) 56.4 H [place] % (Auto) 7.3 Eos % (Auto) 2.6 Baso % (Auto) 0.7 Absolute Neuts (auto) 2.3 Absolute Lymphs (auto) 3.94 Nucleated RBC % 0 Sodium 139 Potassium 3.6 Chloride 105 Carbon Dioxide 27.0 Anion Gap 7 BUN 11 Creatinine 1.04 H Estim Creat Clear Calc 57.86 Est GFR (MDRD) Af Amer 69 Est GFR (MDRD) Non-Af 57 L BUN/Creatinine Ratio 10.6 Glucose 139 H Calcium 9.2 Troponin I High Sens 5 Radiography Diagnostic Testing: Clinical Impression(s) from Imaging Studies Abdomen/Pelvis CT 08/30/22 12:56 IMPRESSION: 1. Fatty infiltration of liver again noted. 2. Prior cholecystectomy. 3. Stable 2.25 cm left adrenal mass consistent with an adenoma. 4. 3.3 cm cortical cyst posterior midpole of left kidney is mildly increased in size. No hydronephrosis. 5. Mild to moderate infrarenal abdominal aortic atherosclerotic calcification. No demonstrated aneurysm. 6. Prior hysterectomy. 7. Stable, small, fat-containing umbilical hernia. 8. 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 Electronically Signed: Hesham Torres MD at 13:54 EDT Reading Location ID and State: [id number] / Unknown , Service support , Chest X-Ray 08/30/22 13:30 IMPRESSION: No acute cardiopulmonary disease. Electronically Signed: Hesham Torres MD at 14:08 EDT Reading Location ID and State: [id number] / Unknown , Service support , Discharge Plan Triage Chief Complaint: Chest Pain ED Provider: Amrit Paez Dx/Rx/DC Orders Prescriptions: No Action furosemide 40 MG tablet 40 mg PO DAILY Patient Comments: TAKE ONE-HALF TABLET BY MOUTH 1 (ONE) TIME DAILY apixaban 5 MG tablet 5 mg PO BID amitriptyline 25 MG tablet 25 mg PO QHS Qty: 30 2RF rosuvastatin 10 mg Tablet 10 mg PO DAILY tramadol 50 mg tablet 50 mg PO TID PRN (Reason: Pain) Patient Comments: TAKE 1 TABLET BY MOUTH THREE TIMES DAILY NEEDED pantoprazole 40 mg tablet,delayed release (DR/EC) 40 mg PO DAILY Patient Comments: Take 1 tablet by mouth daily before breakfast. Take on empty stomach, 1/2 hr before meal. potassium chloride 10 mEq tablet extended release 10 meq PO DAILY Humira Pen 40 mg/0.8 mL pen injector kit 40 mg SUBCUT Q14D metformin 500 mg tablet extended release 24 hr 500 mg PO DAILY Primary Care Provider: Lyssa Higuera COMMUNITY ENGAGEMENT COORDINATOR Referrals: Lyssa Higuera COMMUNITY ENGAGEMENT COORDINATOR, COMMUNITY ENGAGEMENT COORDINATOR-C [Primary Care Provider] -
[2022-08-30 15:02] LABS: Reflex Troponin-HS? (from REC) Y
[2022-08-30 15:38] LABS: Troponin-I HS 6 pg/mL (3.0-54.0)
== END 2022-08-30 16:24 | disposition home or self-care (01) ==
PROVIDERS: Emergency Medicine; Emergency Provider Emergency Medicine; PCP Nurse Practitioner; Visit Provider Emergency Medicine
DX: R07.9 Chest pain, unspecified (principal); E78.5 Hyperlipidemia, unspecified; Z86.718 Personal history of other venous thrombosis and embolism; Z79.01 Long term (current) use of anticoagulants; Z79.899 Other long term (current) drug therapy; Z90.49 Acquired absence of other specified parts of digestive tract; Z90.710 Acquired absence of both cervix and uterus
CPT/HCPCS: 71045; 74176; 80048; 84484; 85025; 93005; 96360; 99284; J7030

== ENCOUNTER → 2024-06-07 | Outpatient (CLI) | payer OTHER, SELFPAY ==
--- NOTE | 2024-06-07 08:58 | BI_ITS ---
EXAM: DIAG MAMM W/CAD, UNILAT; LT BRST UNILAT DAYANA ADD ON; BREAST LIMITED UNILATERAL 06/07/2024 CLINICAL HISTORY: 63-year-old female presents for a left breast findings seen on the outside examination of 05/15/2024. Family history of breast cancer in 2 maternal aunts. TECHNIQUE: Bilateral left digital breast tomosynthesis with 2D and 3D images. Computer aided detection. Also, left breast ultrasound was performed. COMPARISON: Prior exam(s) dated 05/15/2024. FINDINGS: MAMMOGRAM: TISSUE DENSITY: The breast tissue is composed of scattered area of fibroglandular density. Left breast Mammographic Findings: Follow-up examination performed for the asymmetry in the left breast visualized on the outside examination of 05/15/2024. On the present examination, the asymmetry in the medial left breast at middle depth visualized on the CC view persist. However, stability of the finding can not be assessed due to lack of prior comparison mammograms. LEFT BREAST ULTRASOUND: Ultrasound of the medial left breast demonstrates no suspicious sonographic findings to correlate with the mammographic finding. BI/Lt Brst Unilat Dayana Add On IMPRESSION: The asymmetry in the medial left breast is probably benign. Recommend short in terval six-month follow-up left breast diagnostic mammogram for further assessment. Also, if prior mammograms are obtained this finding can further be assessed and compared. Left Breast: BIRADS 3 PROBABLY BENIGN. OVERALL FINAL ASSESSMENT: BIRADS 3 PROBABLY BENIGN. RECOMMENDATION: Short interval follow-up. A letter with findings and recommendations will be mailed to the patient. Reading Location: [id number]
--- NOTE | 2024-06-07 08:58 | BI_ITS ---
EXAM: DIAG MAMM W/CAD, UNILAT; LT BRST UNILAT DAYANA ADD ON; BREAST LIMITED UNILATERAL 06/07/2024 CLINICAL HISTORY: 63-year-old female presents for a left breast findings seen on the outside examination of 05/15/2024. Family history of breast cancer in 2 maternal aunts. TECHNIQUE: Bilateral left digital breast tomosynthesis with 2D and 3D images. Computer aided detection. Also, left breast ultrasound was performed. COMPARISON: Prior exam(s) dated 05/15/2024. FINDINGS: MAMMOGRAM: TISSUE DENSITY: The breast tissue is composed of scattered area of fibroglandular density. Left breast Mammographic Findings: Follow-up examination performed for the asymmetry in the left breast visualized on the outside examination of 05/15/2024. On the present examination, the asymmetry in the medial left breast at middle depth visualized on the CC view persist. However, stability of the finding can not be assessed due to lack of prior comparison mammograms. LEFT BREAST ULTRASOUND: Ultrasound of the medial left breast demonstrates no suspicious sonographic findings to correlate with the mammographic finding. BI/DIAG MAMM W/CAD, UNILAT IMPRESSION: The asymmetry in the medial left breast is probably benign. Recommend short in terval six-month follow-up left breast diagnostic mammogram for further assessment. Also, if prior mammograms are obtained this finding can further be assessed and compared. Left Breast: BIRADS 3 PROBABLY BENIGN. OVERALL FINAL ASSESSMENT: BIRADS 3 PROBABLY BENIGN. RECOMMENDATION: Short interval follow-up. A letter with findings and recommendations will be mailed to the patient. Reading Location: [id number]
== END | disposition home or self-care (01) ==
LOC: OPBI 08:55
PROVIDERS: PCP Nurse Practitioner; Referring Provider Nurse Practitioner; Visit Provider Nurse Practitioner
DX: R92.8 Other abnormal and inconclusive findings on diagnostic imaging of breast (principal); Z80.3 Family history of malignant neoplasm of breast
CPT/HCPCS: 76642; 77061; 77065; G0279